=== PATIENT | female | born 1990 | race Caucasian/White ===

== ENCOUNTER 2016-12-18 01:33 | Observation (INO) ==
[2016-12-18] MEDS ORDERED: Ondansetron 4 MG/2 ML VIAL IV ONE (02:44)
[2016-12-18] MEDS ORDERED: 0.9 % Sodium Chloride 1,000 ML IVC ONE (02:44)
--- NOTE | 2016-12-18 03:02 | Emergency Department Note ---
START Narrative - START START: I examined this patient and my medical decision-making was reviewed with the CHIEF TECHNICIAN/PA/Advanced Practice Nurse/Resident Physician. I agree with the documented findings, disposition and treatment plan as described except to the extent set forth below. ED attending note: Patient seen with emergency medicine resident Dr. Marino. Please see a copy of his note for details of the H&P, evaluation, management and disposition of this patient. We independently had [id number] contact with the patient Briefly: A 25-year-old female presents with family for history of dark stools syncopal episode struck head on floor in triage today. Has seen multiple consultants" including mobility developer, neurologist among others. Patient is neurologically nonfocal afebrile with stable vital signs. EKG shows no acute ischemic changes. Lab work and CT scans are pending. Disposition pending.
[2016-12-18 03:40] LABS: Bilirubin,Urine Small (Negative); Blood,Urine Negative (Negative); Clarity,Urine Cloudy (Clear); Color,Urine Dark Yellow (Yellow); Glucose,Urine (UA) Normal (Normal); Ketones,Urine Negative (Negative); Leukocyte Esterase,Urine Negative (Negative); Nitrite,Urine Negative (Negative); PH,Urine 5.5 pH Units (5.0-8.0); Protein,Urine Trace mg/dL (Neg-Trace); Specific Gravity,Urine > 1.030 (1.010-1.025); Urobilinogen,Urine Normal (Normal)
[2016-12-18 03:42] LABS: Bacteria,Urine Few per hpf (None-Few); Hyaline Casts,Urine None Seen per lpf (None-Few); Squamous Epithelial Cell,Urine Many per lpf (None-Few); WBC,Urine 0-3 per hpf (0-3)
[2016-12-18 03:49] LABS: BUN/Creatinine Ratio 41 (6-26); Blood Urea Nitrogen 28 mg/dL (7-20); Calcium 8.9 mg/dL (8.6-10.8); Carbon Dioxide 18 mEq/L (19-29); Chloride 108 mEq/L (98-109); Glucose 118 mg/dL (70-99); Osmolality,Calculated 295 (280-300); Potassium 4.2 mEq/L (3.5-4.5); Sodium 139 mEq/L (136-145); eGFR For African Americans > 60 (> 60); eGFR For Non-African Americans > 60 (> 60)
[2016-12-18 04:20] LABS: Basophils % 0.2 %; Eosinophils # 0.1 K/mcL (0.0-0.6); Eosinophils % 1.2 %; Hematocrit 43.5 % (35.3-44.9); Hemoglobin 14.5 g/dL (11.5-15.4); Immature Granulocytes % 0.2 % (0-4); Lymphocytes # 1.1 K/mcL (0.6-4.6); Lymphocytes % 10.7 %; Mean Corpuscular HGB Conc 33.3 g/dL (31.6-35.5); Mean Corpuscular Hemoglobin 31.3 pg (28.0-33.3); Mean Corpuscular Volume 93.8 fL (83.0-100.0); Monocytes # 0.5 K/mcL (0.0-1.3); Monocytes % 4.6 %; Neutrophils # 8.7 K/mcL (1.6-8.9); Platelet Count 116 K/mcL (140-400); Red Blood Count 4.64 M/mcL (3.82-4.97); Red Cell Distribution Width 12.7 % (11.5-14.5); Segmented Neutrophils % 83.1 %
--- NOTE | 2016-12-18 04:23 | Emergency Department Note ---
Disposition Clinical Impression: Syncope Qualifiers: Syncope type: unspecified Qualified Code(s): R55 - Syncope and collapse GI bleed Qualifiers: GI bleed type/associated pathology: unspecified gastrointestinal hemorrhage type Qualified Code(s): K92.2 - Gastrointestinal hemorrhage, unspecified Disposition: Admitted As Inpatient Condition: Fair Referrals: Rich Ovalles MD [Primary Care Provider] - Forms: ED Satisfaction Letter Time of Disposition: 05:28 Syncope HPI - General Chief Complaint: ED Syncope Stated Complaint: syncope, dark stool, n/v Time Seen by Provider: 12/18/16 01:44 Source: patient, family Limitations: no limitations Nursing Notes Reviewed: Yes Vital Signs Reviewed: Yes - History of Present Illness HPI Narrative: 35-year-old female with 3 episodes of syncope, patient states she has. Home felt lightheaded and passed out unknown duration a few episodes were witnessed one episode in the waiting room was witnessed, episodes home vaulter hitting her head on the sink indicated in the bathroom. Patient states she also rolled her left ankle. Has abrasion on that ankle. Patient denies blood thinners, denies had a period 1 week ago that was normal. Patient states that she has been worked up multiple times by rheumatology for her multiple complaints, headaches shortness of breath, all of her workups for autoimmune disease of been negative so far. Patient is also seen a neurologist Dr. Odessa Mena at [facility] no cause for her symptoms. Pt Subjective Complaint: loss of consciousness Onset (ago): day(s) Prodromal Symptoms: headache, lightheaded Witnessed: yes - by bystander Injuries Sustained Associated with Event: head, RUE, LLE Current Symptoms: none History: none Treatments prior to arrival: none Associated trauma secondary to event: Yes - Related Data Home Medications Medication Instructions Recorded Confirmed Gabapentin [Neurontin] 300 mg PO BID 12/08/16 12/08/16 Metformin [Glucophage] 500 mg PO TID 12/08/16 12/08/16 Previous Rx's Medication Instructions Recorded PredniSONE [Deltasone] 20 mg PO AD #16 tablet 12/08/16 Allergies Allergy/AdvReac Type Severity Reaction Status Date / Time latex Allergy Seizure Verified 12/18/16 01:58 azithromycin AdvReac Nausea Verified 12/18/16 01:58 All systems ED: reviewed and negative except as stated. Constitutional: Denies: fever Cardiovascular: Reports: as per HPI, syncope. Denies: chest pain, palpitations Respiratory: Denies: cough, dyspnea Gastrointestinal: Denies: abdominal pain, nausea, vomiting Musculoskeletal: Denies: back pain, neck pain, arthralgia Neurological: Reports: as per HPI, headache Psychiatric: Denies: anxiety Past Medical History - Past Medical History Attestation: Yes The following information was validated with the patient. 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 HEENT: NCAT, sclera anicteric, PERRLA bilaterally, normal external ears bilaterally, nasal septum nondeviated, average dentition, MMM Neck: normal inspection, neck is supple, trachea midline Resp: normal chest inspection, CTA bilaterally, no resp distress CV: RRR, no m/g/r GI: normal inspection, Soft, NTND, BS present and is nontender Back: normal inspection, no tenderness to palpation Neuro: A&O3, no gross motor or sensory deficits bilaterally MSK: All abrasion with no deformity to the right forearm, small abrasion to the left lateral ankle, no deformity noticed. Psych: normal mood, normal affect Skin: abrasion right forearm and left lateral ankle. - General Limitations: no limitations General appearance: alert Course Course Narrative: Patient borderline tachycardic, 3 episodes of syncope, will check guaiac stool, basic lab work urine urinalysis CT head given fall and left ankle x- ray given injury, do not suspect bony injury to the right arm looks like an abrasion. - Reevaluation(s) Reevaluation #1: Hemoccult was positive for blood, will type and screen, give Protonix for suspected upper GI bleed admitted to medicine service Dr. May accepting. Time: 05:27 Vital Signs Temperature 97.4 F L 12/18/16 01:54 Pulse Rate 99 12/18/16 01:54 Respiratory Rate 16 12/18/16 01:54 Blood Pressure 110/74 12/18/16 01:54 O2 Sat by Pulse Oximetry 99 12/18/16 01:54 Temperature 97.4 F L 12/18/16 01:54 Pulse Rate 99 12/18/16 01:54 Respiratory Rate 16 12/18/16 01:54 Blood Pressure 110/74 12/18/16 01:54 O2 Sat by Pulse Oximetry 99 12/18/16 01:54 Oxygen Delivery Oxygen Delivery Room Air Syncope - Differential Diagnosis Likely: syncope due to orthostatic hypotension, vasovagal syncope, complete atrioventricular block - Medical Records Medical records reviewed: Yes I reviewed the patient's medical records. - Lab Data Lab results reviewed: Yes I reviewed the patient's lab results. Result diagrams: 12/18/16 04:13 12/18/16 03:30 Lab Results 12/18/16 12/18/16 12/18/16 Range/Units 03:30 03:30 03:30 WBC (4.3-11.1) K/mcL RBC (3.82-4.97) M/mcL Hgb (11.5-15.4) g/dL Hct (35.3-44.9) % MCV (83.0-100.0) fL MCH (28.0-33.3) pg MCHC (31.6-35.5) g/dL RDW (11.5-14.5) % Plt Count (140-400) K/mcL MPV (9.4-12.4) fL Immature Gran % (0-4) % Seg Neutrophils % % Lymphocytes % % Monocytes % % Eosinophils % % Basophils % % Neutrophils # (1.6-8.9) K/mcL Lymphocytes # (0.6-4.6) K/mcL Monocytes # (0.0-1.3) K/mcL Eosinophils # (0.0-0.6) K/mcL Basophils # (0.0-0.2) K/mcL Sodium 139 (136-145) mEq/L Potassium 4.2 (3.5-4.5) mEq/L Chloride 108 (98-109) mEq/L Carbon Dioxide 18 L (19-29) mEq/L BUN 28 H (7-20) mg/dL Creatinine 0.68 (0.57-1.11) mg/dL Est GFR ( Amer) > 60 (> 60) Est GFR (Non-Af Amer) > 60 (> 60) BUN/Creatinine Ratio 41 H (6-26) Glucose 118 H (70-99) mg/dL Calculated Osmolality 295 (280-300) Calcium 8.9 (8.6-10.8) mg/dL Troponin I 0.00 (0-0.03) ng/mL Urine Color Dark Yellow (Yellow) Urine Clarity Cloudy A (Clear) Urine pH 5.5 (5.0-8.0) pH Units Ur Specific [place] > 1.030 H (1.010-1.025) Urine Protein Trace (Neg-Trace) mg/dL Urine Glucose (UA) Normal (Normal) mg/dL Urine Ketones Negative (Negative) mg/dL Urine Blood Negative (Negative) Urine Nitrite Negative (Negative) Urine Bilirubin Small H (Negative) Urine Urobilinogen Normal (Normal) mg/dL Ur Leukocyte Esterase Negative (Negative) Urine Microscopic RBC 5-15 H (0-3) per hpf Urine Microscopic WBC 0-3 (0-3) per hpf Ur Squamous Epith Cells Many H (None-Few) per lpf Urine Bacteria Few (None-Few) per hpf Hyaline Casts None Seen (None-Few) per lpf Urine Test (Negative) Stool Occult Blood (Negative) Specimen Rejected 12/18/16 12/18/16 12/18/16 Range/Units 03:30 03:39 04:13 WBC 10.4 (4.3-11.1) K/mcL RBC 4.64 (3.82-4.97) M/mcL Hgb 14.5 (11.5-15.4) g/dL Hct 43.5 (35.3-44.9) % MCV 93.8 (83.0-100.0) fL MCH 31.3 (28.0-33.3) pg MCHC 33.3 (31.6-35.5) g/dL RDW 12.7 (11.5-14.5) % Plt Count 116 L (140-400) K/mcL MPV 12.0 (9.4-12.4) fL Immature Gran % 0.2 (0-4) % Seg Neutrophils % 83.1 % Lymphocytes % 10.7 % Monocytes % 4.6 % Eosinophils % 1.2 % Basophils % 0.2 % Neutrophils # 8.7 (1.6-8.9) K/mcL Lymphocytes # 1.1 (0.6-4.6) K/mcL Monocytes # 0.5 (0.0-1.3) K/mcL Eosinophils # 0.1 (0.0-0.6) K/mcL Basophils # 0.0 (0.0-0.2) K/mcL Sodium (136-145) mEq/L Potassium (3.5-4.5) mEq/L Chloride (98-109) mEq/L Carbon Dioxide (19-29) mEq/L BUN (7-20) mg/dL Creatinine (0.57-1.11) mg/dL Est GFR ( Amer) (> 60) Est GFR (Non-Af Amer) (> 60) BUN/Creatinine Ratio (6-26) Glucose (70-99) mg/dL Calculated Osmolality (280-300) Calcium (8.6-10.8) mg/dL Troponin I (0-0.03) ng/mL Urine Color (Yellow) Urine Clarity (Clear) Urine pH (5.0-8.0) pH Units Ur Specific [place] (1.010-1.025) Urine Protein (Neg-Trace) mg/dL Urine Glucose (UA) (Normal) mg/dL Urine Ketones (Negative) mg/dL Urine Blood (Negative) Urine Nitrite (Negative) Urine Bilirubin (Negative) Urine Urobilinogen (Normal) mg/dL Ur Leukocyte Esterase (Negative) Urine Microscopic RBC (0-3) per hpf Urine Microscopic WBC (0-3) per hpf Ur Squamous Epith Cells (None-Few) per lpf Urine Bacteria (None-Few) per hpf Hyaline Casts (None-Few) per lpf Urine Test Negative (Negative) Stool Occult Blood (Negative) Specimen Rejected Clotted 12/18/16 Range/Units 04:25 WBC (4.3-11.1) K/mcL RBC (3.82-4.97) M/mcL Hgb (11.5-15.4) g/dL Hct (35.3-44.9) % MCV (83.0-100.0) fL MCH (28.0-33.3) pg MCHC (31.6-35.5) g/dL RDW (11.5-14.5) % Plt Count (140-400) K/mcL MPV (9.4-12.4) fL Immature Gran % (0-4) % Seg Neutrophils % % Lymphocytes % % Monocytes % % Eosinophils % % Basophils % % Neutrophils # (1.6-8.9) K/mcL Lymphocytes # (0.6-4.6) K/mcL Monocytes # (0.0-1.3) K/mcL Eosinophils # (0.0-0.6) K/mcL Basophils # (0.0-0.2) K/mcL Sodium (136-145) mEq/L Potassium (3.5-4.5) mEq/L Chloride (98-109) mEq/L Carbon Dioxide (19-29) mEq/L BUN (7-20) mg/dL Creatinine (0.57-1.11) mg/dL Est GFR ( Amer) (> 60) Est GFR (Non-Af Amer) (> 60) BUN/Creatinine Ratio (6-26) Glucose (70-99) mg/dL Calculated Osmolality (280-300) Calcium (8.6-10.8) mg/dL Troponin I (0-0.03) ng/mL Urine Color (Yellow) Urine Clarity (Clear) Urine pH (5.0-8.0) pH Units Ur Specific [place] (1.010-1.025) Urine Protein (Neg-Trace) mg/dL Urine Glucose (UA) (Normal) mg/dL Urine Ketones (Negative) mg/dL Urine Blood (Negative) Urine Nitrite (Negative) Urine Bilirubin (Negative) Urine Urobilinogen (Normal) mg/dL Ur Leukocyte Esterase (Negative) Urine Microscopic RBC (0-3) per hpf Urine Microscopic WBC (0-3) per hpf Ur Squamous Epith Cells (None-Few) per lpf Urine Bacteria (None-Few) per hpf Hyaline Casts (None-Few) per lpf Urine Test (Negative) Stool Occult Blood Positive A (Negative) Specimen Rejected - Radiology Data Radiology results reviewed: Yes I reviewed the patient's radiology results. Ankle X-Ray 12/18/16 02:43 IMPRESSION: No acute abnormality of the ankle. D/ / Jimmy Avila MD / Jimmy Avila MD Interpreting Provider: Jimmy Avila MD Head CT 12/18/16 02:43 IMPRESSION: 1. No acute intracranial abnormality. D/ / Nikko Centeno MD / Nikko Centeno MD Interpreting Provider: Nikko Centeno MD Chest X-Ray 12/18/16 02:44 IMPRESSION: No acute process. D/ / Jimmy Avila MD / Jimmy Avila MD Interpreting Provider: Jimmy Avila MD - EKG Data EKG attestation: Yes I reviewed and interpreted this EKG. EKG shows normal: sinus rhythm (72 bpm. 151 QRS 76 QTC 397 left atrial enlargement, no st changes) Rhythm: NSR [place]/QRS: normal Interpretation: no acute changes - Core Measures AMI Core Measures Followed: No Measure Exclusions: not indicated
[2016-12-18] MEDS ORDERED: Pantoprazole 40 MG VIAL IVP ONE (05:18)
[2016-12-18] MEDS ORDERED: 0.9 % Sodium Chloride 1,000 ML IVC SCH (05:30)
[2016-12-18] MEDS ORDERED: Acetaminophen 325 MG TABLET PO PRN (07:25)
[2016-12-18] MEDS ORDERED: Naloxone 0.4 MG/ML INJ IVP PRN (07:25)
[2016-12-18 08:42] LABS: Amphetamine Screen,Urine Negative ng/mL (Cutoff=1000); Barbiturate Screen,Urine Negative ng/mL (Cutoff=200); Benzodiazepines Screen,Urine Negative ng/mL (Cutoff=200); Cannabinoid Screen,Urine Negative ng/mL (Cutoff = 50); Cocaine Screen,Urine Negative ng/mL (Cutoff= 300); Opiate Screen,Urine Negative ng/mL (Cutoff=300); Phencyclidine Screen,Urine Negative ng/mL (Cutoff=25)
--- NOTE | 2016-12-18 12:17 | Internal Med History&Physical ---
Date of Encounter: 12/18/16 Time of Encounter: 11:21 Assessment and Plan (1) Nausea vomiting and diarrhea Current visit: Yes Status: Acute Now, she comes with a 3 day history of sudden onset of severe neck tenderness associated with palpitations. She describes her pain as burning-type, localized to her anterior neck, then radiated to her posterior area and continued all the way to her lower back. Yesterday, she developed nausea, vomiting and diarrhea. No bleeding. She vomited more than 10 times and had 3-4 watery bowel movements followed by dizziness and multiple syncopal episodes. No chest pain. no shortness of breath. no abdominal pain. no fever. no urinary symptoms. no skin lesions. no sick contacts. no upper respiratory symptoms. She ate [employer] yesterday which she does from time to time without any problems. Today, she had one watery bowel movement and no vomit since she received IV Zofran. Her neck tenderness is improving as well as her lower back pain. No syncopal episodes while inpatient. VS stable in ED. EKG reviewed by me, no new acute changes. CXR negative. troponin x1 negative. unremarkable cbc, bmp and urinarlysis. negative UDS. could be viral gastroenteritis. Symptoms are resolving and patient feels better. Continue IV fluid hydration and pain control with opiates. (2) Syncope Current visit: Yes Status: Acute likely secondary to dehydration. could be cardiac vs vasovagal. EKG on admission showed no new changes. negative CXR and troponin x1. Ct head showed no acute intracranial process. unremarkable cbc, bmp and urinarlysis. negative UDS. IV fluids. check echocardiogram. ekg monitor tech. Qualifiers: Syncope type: unspecified Qualified Code(s): R55 - Syncope and collapse (3) Dehydration Current visit: Yes Status: Acute (4) Tenderness of neck Current visit: Yes Status: Acute Improved. could be secondary to viral infection. (5) Thrombocytopenia Current visit: No Status: Chronic Platelets are at baseline. no bleeding. completed recent taper of prednisone on 12/15/16. close monitoring Internal Medicine - H&P: HPI Chief complaint: vomiting, diarrhea and syncope sicne yesterday Admitted From: Home Plans for Post Hospital Care: Home History of present illness: Ms. Patel is a 25 year old female with past medical history of chronic thrmbocytopenia, polycystic ovarian disease, fibromyalgia and tobacco use who has been dealing with an unknown illness for the past year. She reports that she has seen almost all the specialties in [place] without any answer for her symptoms. She is very vague about her symptoms, she reports extreme fatigue, headaches, arthritis, and pain all over.Her outpatient work up between February 2016 and October [address] has included [address] chest, HIV, viral hepatitis, PRATIMA, HLA-B27, RF, CCP, TSH, b12, folate, and RPR. CT abd and pelvis in Jun showed 8 mm splenic cyst or hemangioma, Unremarkable liver and spleen. She was started on prednisone on 12/08/16 for chronic thrombocytopenia since 2013 ( platelets fluctuates in the 90-100s). A week ago, she took bactrim for 7 days to treat a UTI and all her urinary symptoms resolved. Now, she comes with a 3 day history of sudden onset of severe neck tenderness associated with palpitations. She describes her pain as burning-type, localized to her anterior neck, then radiated to her posterior area and continued all the way to her lower back. Yesterday, she developed nausea, vomiting and diarrhea. No bleeding. She vomited more than 10 times and had 3-4 watery bowel movements followed by dizziness and multiple syncopal episodes. No chest pain. no shortness of breath. no abdominal pain. no fever. no urinary symptoms. no skin lesions. no sick contacts. no upper respiratory symptoms. She ate [employer] yesterday which she does from time to time without any problems. Today, she had one watery bowel movement and no vomit since she received IV Zofran. Her neck tenderness is improving as well as her lower back pain. No syncopal episodes while inpatient. VS stable in ED. EKG reviewed by me, no new acute changes. CXR negative. troponin x1 negative. Ct head showed no acute intracranial process. unremarkable cbc, bmp and urinarlysis. negative UDS. Past Med Surg Social Fam HX - Past Medical History Medical history: GERD, other Psychiatric history: no psych history - Past Surgical History Surgical History: , cholecystectomy - Social History Smoking Status: Current every day smoker Packs per day: 1 Smokeless Tobacco Status: No Alcohol use: none Drug use: none - Family History Father Hx Family Endocrine Disorder: Yes (DIABETES MELLITUS.) Internal Medicine - H&P: Meds Gabapentin [Neurontin] 300 mg PO BID 12/08/16 [History] Metformin [Glucophage] 500 mg PO TID 12/08/16 [History] PredniSONE [Deltasone] 20 mg PO AD #16 tablet 12/08/16 [Rx] Allergies latex Allergy (Verified 12/18/16 01:58) Seizure azithromycin Adverse Reaction (Verified 12/18/16 01:58) Nausea All Systems PM: A 10-system review of systems was performed and is negative for pertinent findings except as documented above in the HPI. - Constitutional Vitals: Temp Pulse Resp BP Pulse Ox 98.2 F 87 16 99/65 96 12/18/16 10:18 12/18/16 10:18 12/18/16 10:18 12/18/16 10:18 12/18/16 10:18 General appearance: Present: cooperative, A&O X 3, morbidly obese, pleasant, no acute distress, answers questions appropriately - Eye Eye exam: Present: PERRL, sclera anicteric - Neck Neck exam general surgery: Present: supple, trachea midline. Absent: lymphadenopathy - Respiratory Respiratory exam: Present: CTAB - Cardiovascular Cardiovascular exam: Present: RRR - GI/Abdominal GI/Abdominal exam: Present: normal bowel sounds, soft. Absent: distended, tenderness - Extremities Exam Extremities exam: Absent: pedal edema - Back Exam Back exam: Absent: CVA tenderness (L), CVA tenderness (R) - Neurological Exam Neurological exam: Present: alert, oriented X3, no focal deficits, strengths equal and symetr throughout. Absent: facial droop, speech deficit - Skin Skin exam: Absent: rash Internal Med - H&P Results - Labs CBC & Chem 7: 12/18/16 04:13 12/18/16 03:30
[2016-12-18] MEDS: 0.9 % Sodium Chloride 1,000 ML IVC SCH ×2 (12:29→17:08)
[2016-12-18] MEDS: Gabapentin 300 MG CAPSULE PO SCH (19:56)
[2016-12-19] MEDS: 0.9 % Sodium Chloride 1,000 ML IVC SCH (03:44)
[2016-12-19 04:45] LABS: Immature Granulocytes % 0.2 % (0-4); Mean Platelet Volume 12.8 fL (9.4-12.4)
[2016-12-19 04:46] LABS: Basophils % 0.4 %; Eosinophils # 0.1 K/mcL (0.0-0.6); Eosinophils % 2.6 %; Hematocrit 34.3 % (35.3-44.9); Hemoglobin 11.4 g/dL (11.5-15.4); Immature Platelets 11.1 % (1.1-6.1); Lymphocytes # 1.8 K/mcL (0.6-4.6); Lymphocytes % 37.4 %; Mean Corpuscular HGB Conc 33.2 g/dL (31.6-35.5); Mean Corpuscular Hemoglobin 31.8 pg (28.0-33.3); Mean Corpuscular Volume 95.5 fL (83.0-100.0); Monocytes # 0.3 K/mcL (0.0-1.3); Monocytes % 6.8 %; Neutrophils # 2.5 K/mcL (1.6-8.9); Red Blood Count 3.59 M/mcL (3.82-4.97); Red Cell Distribution Width 12.8 % (11.5-14.5); Segmented Neutrophils % 52.6 %
[2016-12-19 04:51] LABS: BUN/Creatinine Ratio 21 (6-26); Calcium 7.9 mg/dL (8.6-10.8); Carbon Dioxide 23 mEq/L (19-29); Chloride 110 mEq/L (98-109); Glucose 90 mg/dL (70-99); Magnesium 1.8 mg/dL (1.6-2.6); Osmolality,Calculated 288 (280-300); Potassium 3.7 mEq/L (3.5-4.5); Sodium 139 mEq/L (136-145); eGFR For African Americans > 60 (> 60); eGFR For Non-African Americans > 60 (> 60)
[2016-12-19 04:52] LABS: Blood Urea Nitrogen 13 mg/dL (7-20)
[2016-12-19 05:14] LABS: Platelet Count 94 K/mcL (140-400); Platelet Estimate Decreased (Normal)
--- NOTE | 2016-12-19 06:59 | Electrocardiograph Report ---
[address] [place] [address] Test Date: 2016-12-18 Pat Name: Lizbeth Patel Department: 102 Room: 3B24 Gender: F Manganese Wheeler: Ec : 1990 Requested By: Bj Remy Order Number: [id number] Reading MD: Buddy Tirado MD Measurements Intervals [place] Rate: 72 P: 14 TX: 151 QRS: 69 QRSD: 76 T: 45 QT: 373 QTc: 397 Interpretive Statements SINUS RHYTHM WITH SINUS ARRHYTHMIA LEFT ATRIAL ENLARGEMENT SEPTAL MYOCARDIAL INFARCTION, OF INDETERMINATE AGE Electronically Signed On 12-19-2016 6:58:24 EDT by Buddy Tirado MD
[2016-12-19] MEDS: Gabapentin 300 MG CAPSULE PO SCH ×2 (08:43→20:50)
[2016-12-19 09:13] LABS: Hematocrit 35.8 % (35.3-44.9); Hemoglobin 11.6 g/dL (11.5-15.4)
[2016-12-19 09:18] LABS: INR 1.2
[2016-12-19 09:20] LABS: Activated Partial Thrombo Time 30.3 Seconds (26.0-36.0)
--- NOTE | 2016-12-19 18:23 | ECHO - Doppler Report ---
Echocardiogram Name: Lizbeth Patel Date of Study: 12/19/2016 Date: 1990 Ht: 63.0 in Medical Record#: [id number] Age: 25 Wt: 207.0 lb Gender: Female BSA: 1.96 Order #: [id number] Location: [facility] Room #: 3B24 Reading Physician: Buddy Tirado MD, [facility] Client Insights Consultant: Eleanor Cortés RDCS Ordering Physician: Abigail Story MD Primary Physician: Rich Ovalles MD Indications: Syncope Impressions: Severe mitral stenosis. Likely severe tricuspid stenosis. Moderate mitral regurgitation. Rheumatic mitral valve. Likely thickened chordae, but vegetation cannot be ruled out At least moderately dilated right atrium Severely dilated left atrium. Severe pulmonary hypertension. Mild aortic stenosis. Moderate aortic regurgitation. The IVC is dilated. < 50% respiratory change. LVEF 60-65%. Left Ventricular Wall Motion: Rest Echo Findings All wall segments showed normal motion. Findings: Study Quality * Technically adequate exam. Right Ventricle * Normal right ventricular structure and function. Right Atrium * At least moderately dilated right atrium Interatrial Septum * No evidence of PFO by color Doppler. Aorta * Normally sized aortic root. ECG Findings * Normal sinus rhythm. Mitral Valve * Mildly thickened mitral valve leaflets. * Severe mitral stenosis. * Moderate mitral regurgitation. * Rheumatic mitral valve. Likely thickened chordae, but vegetation cannot be ruled out Left Atrium * Severely dilated left atrium. Tricuspid Valve * Estimated RVSP is 60 mmHg. * Severe pulmonary hypertension. * Likely severe tricuspid stenosis. * Estimated RA pressure is 10-15 mmHg. Pulmonic Valve * No pulmonid stenosis * Trace pulmonic regurgitation. Pericardium * There is a trivial pericardial effusion present. Aortic Valve * Normal aortic valve structure. * Mild aortic stenosis. * Peak and mean gradients are 30 14 mmHg, respectively. * Moderate aortic regurgitation. IVC * The IVC is dilated. * < 50% respiratory change. Left Ventricle * LVEF 60-65%. * Indeterminate diastolic function. History History of Smoking Years Packs 1 Measurements: BP: 116/ 74 2D Normal Values RVIDd: 2.87 cm <2.7 cm IVSd: .91 cm 0.6 - 1.0 cm LVIDd: 3.69 cm 3.7 - 5.6 cm LVPWd: 1.17 cm 0.6 - 1.1 cm LVIDs: 2.13 cm 1.5 - 3.6 cm AO: 1.70 cm < 4.0 cm LA: 5.00 cm 2.0 - 4.0cm %FS: 42.30 cm >25 % LVOT Diam: 1.90 cm LA volume: 56 Mitral Valve Peak Velocity 3.53 m/sec Mean Velocity:2.37 m/sec Peak Grad:50.00 mmHg Mean Grad:25.00 mmHg Peak E:2.67 m/sec Peak A:3.02 m/sec E/A Ratio:0.9 Aortic Valve Peak Telly:2.63 m/sec Mean Telly:1.73 m/sec Peak Grad:28.00 mmHg Mean Grad:14.00 mmHg AI pressure Half-time: 471.00 msec Tricuspid Valve TV Regurg Peak Grad: 60.00mmHg TV Regurg Peak Telly: 3.87m/sec Updated by Buddy Tirado MD, [facility] on 12/19/2016 6:19:28 PM electronically signed on 12/19/2016 6:19:48 PM with status of Final Wall Motion [place]: 1=Normal, 2=Hypokinesis, 3=Akinesis, 4=Dyskinesis, 5=Aneurysmal, 6=Hyperkinetic, X=Not Visualized (Blank)=Missing
--- NOTE | 2016-12-19 19:23 | Internal Med Progress Note ---
Date of Encounter: 12/19/16 Time of Encounter: 09:30 - Assessment and plan (1) Syncope Current Visit: Yes Status: Acute Assessment and plan: echocardiogram reveals rheumatic mitral valve, severe mitral stenosis, mod MR, sev dialted LA, severe pulm HTN, mod AR, LVEF 60%. Cardiology consult. 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 VS stable. CXR negative. troponin x1 negative. Qualifiers: Syncope type: unspecified Qualified Code(s): R55 - Syncope and collapse (2) Nausea vomiting and diarrhea Current Visit: Yes Status: Acute Assessment and plan: 3 day history of sudden onset of severe neck tenderness associated with palpitations. She describes her pain as burning-type, localized to her anterior neck, then radiated to her posterior area and continued all the way to her lower back. Yesterday, she developed nausea, vomiting and diarrhea. No bleeding. She vomited more than 10 times and had 3-4 watery bowel movements followed by dizziness and multiple syncopal episodes. No chest pain. no shortness of breath. no abdominal pain. no fever. no urinary symptoms. no skin lesions. no sick contacts. no upper respiratory symptoms. She ate [employer] yesterday which she does from time to time without any problems. Today, she had one watery bowel movement and no vomit since she received IV Zofran. Her neck tenderness is improving as well as her lower back pain. No syncopal episodes while inpatient. Improved. No vomiting. eating well. could be viral gastroenteritis. (3) Dehydration Current Visit: Yes Status: Acute Assessment and plan: due to N/V/diarrhea. resolved. (4) Tenderness of neck Current Visit: Yes Status: Resolved (5) Thrombocytopenia Current Visit: No Status: Chronic Assessment and plan: Platelets are at baseline. no bleeding. completed recent taper of prednisone on 12/15/16. close monitoring - Subjective Interval history: Patient reports leg and arm swelling after IV fluid hydration. IVF stopped. - Constitutional Vitals: Temp Pulse Resp BP Pulse Ox 97.5 F L 68 16 116/74 97 12/19/16 15:02 12/19/16 15:02 12/19/16 15:02 12/19/16 15:02 12/19/16 15:02 General appearance: Present: cooperative, A&O X 3, morbidly obese, pleasant, no acute distress, answers questions appropriately - Neck Neck exam general surgery: Present: supple, trachea midline - Respiratory Respiratory exam: Present: CTAB - Cardiovascular Cardiovascular exam: Present: RRR - GI/Abdominal GI/Abdominal exam: Present: normal bowel sounds, soft. Absent: distended, tenderness - Extremities Exam Extremities exam: Present: pedal edema - Back Exam Back exam: Absent: CVA tenderness (L), CVA tenderness (R) - Neurological Exam Neurological exam: Present: alert, oriented X3, no focal deficits, strengths equal and symetr throughout. Absent: facial droop, speech deficit - Skin Skin exam: Absent: rash Internal Medicine: Result - Labs CBC & Chem 7: 12/19/16 08:27 12/19/16 04:00 Labs: Short CBC 12/19/16 12/19/16 Range/Units 04:00 08:27 WBC 4.7 D (4.3-11.1) K/mcL Hgb 11.4 L D 11.6 (11.5-15.4) g/dL Hct 34.3 L 35.8 (35.3-44.9) % Plt Count 94 L (140-400) K/mcL Neutrophils # 2.5 (1.6-8.9) K/mcL BMP 12/19/16 04:00 Sodium 139 Potassium 3.7 Chloride 110 H Carbon Dioxide 23 BUN 13 D Creatinine 0.63 Glucose 90 Calcium 7.9 L - ABG Interpretation ABG results: PT/INR, D-dimer PT 13.0 Seconds (9.4-12.1) H 12/19/16 08:27 Consult Discharge Plan - Plan Referrals: Rich Ovalles MD [Primary Care Provider] - 12/27/16 2:00 pm
[2016-12-20 04:52] LABS: Immature Granulocytes % 0.2 % (0-4); Mean Corpuscular Volume 95.1 fL (83.0-100.0)
[2016-12-20 04:54] LABS: Basophils % 0.3 %; Eosinophils # 0.1 K/mcL (0.0-0.6); Eosinophils % 2.1 %; Hematocrit 34.8 % (35.3-44.9); Hemoglobin 11.3 g/dL (11.5-15.4); Immature Platelets 13.6 % (1.1-6.1); Lymphocytes # 1.9 K/mcL (0.6-4.6); Lymphocytes % 30.6 %; Mean Corpuscular HGB Conc 32.5 g/dL (31.6-35.5); Mean Corpuscular Hemoglobin 30.9 pg (28.0-33.3); Mean Platelet Volume 12.7 fL (9.4-12.4); Monocytes # 0.4 K/mcL (0.0-1.3); Monocytes % 6.9 %; Neutrophils # 3.7 K/mcL (1.6-8.9); Red Blood Count 3.66 M/mcL (3.82-4.97); Red Cell Distribution Width 12.7 % (11.5-14.5); Segmented Neutrophils % 59.9 %
[2016-12-20 04:56] LABS: Platelet Count 90 K/mcL (140-400)
[2016-12-20 05:16] LABS: Alanine Aminotransferase 21 Units/L (0-55); Albumin 3.1 g/dL (3.5-5.0); Albumin/Globulin Ratio 1.1 (1.1-2.2); Alkaline Phosphatase 33 Units/L (38-126); Aspartate Amino Transferase 13 Units/L (5-34); BUN/Creatinine Ratio 22 (6-26); Bilirubin,Direct 0.1 mg/dL (0.0-0.5); Bilirubin,Indirect 0.3 mg/dL (0.0-1.2); Bilirubin,Total 0.4 mg/dL (0.2-1.2); Blood Urea Nitrogen 14 mg/dL (7-20); C-Reactive Protein 6 mg/L (Less than 5); Calcium 8.4 mg/dL (8.6-10.8); Carbon Dioxide 23 mEq/L (19-29); Chloride 109 mEq/L (98-109); Globulin 2.8 g/dL (2.4-3.5); Glucose 89 mg/dL (70-99); Osmolality,Calculated 286 (280-300); Sodium 138 mEq/L (136-145); Total Protein 5.9 g/dL (6.0-8.3); eGFR For African Americans > 60 (> 60); eGFR For Non-African Americans > 60 (> 60)
[2016-12-20] MEDS: Gabapentin 300 MG CAPSULE PO SCH ×2 (09:17→20:43)
--- NOTE | 2016-12-20 10:47 | Cardiology Consult Note ---
<RogerFannie barbour - Last Filed: 12/20/16 10:47> Date of Encounter: 12/20/16 Time of Encounter: 09:30 Assessment and Plan (1) Mitral valve stenosis, severe Current Visit: Yes Status: Acute Echocardiogram from yesterday showed severe mitral stenosis, likelly severe TC stenosis, moderate mitral regurg, rheumatic mitral valve, likely thickened chordae, but vegetation cannot be ruled out. Severely dilated LA, moderately dilated RA, severe pulmonary HTN, moderate aortic regurg. LVEF 60-65%. patient was admitted with multiple syncopal episodes that started on Monday. These episodes were preceded by nausea and vomiting, also associated with bowel/ bladder incontinence. no prior cardiac history, EKG shows no significant findings/changes. Plan: in setting of severe mitral stenosis, patient will need to be evaluated for valve repair surgery, will likely need to be transferred to [facility] [place]. will discuss with patient plan for surgery and possible transfer. (2) Syncope Current Visit: Yes Status: Acute likely multifactorial in setting of dehydration, mitral stenosis. no syncopal episodes since admission. Plan as above. Qualifiers: Syncope type: unspecified Qualified Code(s): R55 - Syncope and collapse Discussion w patient/family: The assessment and plan as outlined above was discussed with the patient and/or family members who expressed understanding and agreement. All questions were answered. Thank you for involving us in the care of your patient. Please call with any questions. History of Present Illness Consult date: 12/20/16 Requesting physician: Abigail Story Consult reason: severe mitral stenosis Chief complaint: syncope History of present illness: Ms. Patel is a 26 year old female with PMHx of GERD chronic throbocytopenia ( sees Dr. Solis, is being referred to [facility] for workup), PCOS. Patient was admitted for syncopal episodes that started on Monday. Patient states she had about 4-5 syncopal episodes. These episodes were associated with nausea and vomiting preceding the epsisodes. She also states she had loss of bowel and bladder function during this time as well. SHe had one episode of witnessed syncope in the emergency room. She states that when these episodes happen, it is not associated with any specific activity. She has not noticed syncopal episodes with exercise. When these episodes of syncope started, she also complained of diarrhea, which has resolved since her hospital admission. Today, she denies nausea, vomiting, diarrhea, fever, chills, shortness of breath , and dizziness. Echo showed severe mitral stenosis, which was the reason for the cardiology consult. Patient states that her syncope episodes first started when she was 7/8 years old. She says they would occur frequently every time she had strep throat, and then resolved after she had her tonsils taken out around age 9. Of note, patient has been having vague symptoms for about the past year. Her symptoms include extreme fatigue, chronic joint pain, headache. She had a multitude of diagnostic tests that were done and were negative, including: HIV, viral hepatitis, PRATIMA, HLA B27, RF, CCP, TSH, B12, Folate, RPR. Past Med Surg Social Fam HX - Past Medical History Medical history: GERD, other Psychiatric history: no psych history - Past Surgical History Surgical History: , cholecystectomy - Social History Smoking Status: Current every day smoker Packs per day: 1 Smokeless Tobacco Status: No Alcohol use: none Drug use: none - Family History Father Hx Family Endocrine Disorder: Yes (DIABETES MELLITUS.) Medications and Allergies Gabapentin [Neurontin] 300 mg PO BID PRN 12/08/16 [History] Metformin [Glucophage] 500 mg PO TID 12/08/16 [History] PredniSONE [Deltasone] See Taper PO AD 12/18/16 [History] Allergies latex Allergy (Verified 12/18/16 01:58) Seizure azithromycin Adverse Reaction (Verified 12/18/16 01:58) Nausea All Systems Review: A 10-system review of systems was performed and is negative for pertinent findings except as documented above in the HPI. - Constitutional Constitutional: fatigue, headache(s), lethargy, weight gain, no chills, no daytime sleepiness, no fever(s), no frequent falls - Cardiovascular Cardiovascular: palpitations (occasionally with exercise), no chest pain at rest , no chest pain with exertion, no leg edema - Gastrointestinal Gastrointestinal: diarrhea (resolved since admission. ), no abdominal pain, no coffee ground emesis - Neurological Neurological: syncope, no abnormal speech, no dizziness Physical Examination Vital Signs, Last 4 Hours Temp Pulse Resp BP Pulse Ox 12/20/16 07:23 98.0 F 65 15 103/65 98 General: Conversant, No Apparent Distress HEENT: Atraumatic, Normocephaly Neck: No JVD Cardiac: Reg Rate and Rhythm, Normal S1 and S2, Other (very mild grade 1 diastolic murmur noted. ) Lungs: Normal Breath Sounds, No Wheeze, Rales, Rhonchi Neuro: Alert and responsive, No focal deficits noted Abdomen: Soft, Non-Tender Extremities: No Clubbing, No Cyanosis, No Edema Results 12/20/16 04:02 12/20/16 04:02 Lab Results 12/20/16 12/20/16 04:02 04:02 WBC 6.2 Hgb 11.3 L Hct 34.8 L Plt Count 90 L Sodium 138 Potassium 4.0 Chloride 109 Carbon Dioxide 23 BUN 14 Creatinine 0.64 Glucose 89 Calcium 8.4 L Total Bilirubin 0.4 AST 13 ALT 21 Alkaline Phosphatase 33 L Consult Discharge Plan - Plan Referrals: Rich Ovalles MD [Primary Care Provider] - 12/27/16 2:00 pm <Idania Renner - Last Filed: 12/20/16 17:02> Assessment and Plan Discussion w patient/family: The assessment and plan as outlined above was discussed with the patient and/or family members who expressed understanding and agreement. All questions were answered. Thank you for involving us in the care of your patient. Please call with any questions. History of Present Illness History of present illness: Ms. Patel is a 26 year old female All Systems Review: A 10-system review of systems was performed and is negative for pertinent findings except as documented above in the HPI. Physical Examination Vital Signs, Last 4 Hours Temp Pulse Resp BP Pulse Ox 12/20/16 15:21 98.0 F 58 16 114/78 98 Results 12/20/16 04:02 12/20/16 04:02 Lab Results 12/20/16 12/20/16 04:02 04:02 WBC 6.2 Hgb 11.3 L Hct 34.8 L Plt Count 90 L Sodium 138 Potassium 4.0 Chloride 109 Carbon Dioxide 23 BUN 14 Creatinine 0.64 Glucose 89 Calcium 8.4 L Total Bilirubin 0.4 AST 13 ALT 21 Alkaline Phosphatase 33 L - Attending Attestation I examined this patient and my medical decision-making was reviewed with the LABORATORY INSPECTOR/PA/Advanced Practice Nurse/Resident Physician. I agree with the documented findings, disposition and treatment plan. Very pleasant 26 year old female presenting with a year long history of nonspecific symptoms of extreme fatigue and joint pain. She presented to [facility] for syncopal symptoms and had an echo as part of her work up. This demonstrated normal LV and RV function but a rheumatic appearing mitral valve with severe stenosis, MG 20 mmHg and findings of chronicity including severe LAE and severe pulmonary hypertension. Also seen is restricted tricuspid valve leaflet motion which was suboptimally visualized. In addition, she has a thickened tricuspid aortic valve with probable moderate aortic regurgitation. I had a long discussion with the patient about these findings. While she does not appear to be in heart failure, I am concerned about her syncopal episodes and her ongoing nonspecific symptoms. I have recommended transfer to a tertiary care center for further workup of her valvular disease. She will likely need a NOE and mitral valve replacement. She expressed understanding and interest in transfer to [facility]. I spoke with their transfer center who has accepted the patient.
--- NOTE | 2016-12-20 13:59 | Internal Med Progress Note ---
Date of Encounter: 12/20/16 Time of Encounter: 10:15 - Assessment and plan (1) Syncope Current Visit: Yes Status: Acute Assessment and plan: echocardiogram reveals rheumatic mitral valve, severe mitral stenosis, mod MR, sev dialted LA, severe pulm HTN, mod AR, LVEF 60%. 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 CXR negative. troponin x1 negative. Qualifiers: Syncope type: unspecified Qualified Code(s): R55 - Syncope and collapse (2) Mitral valve stenosis, severe Current Visit: Yes Status: Acute Assessment and plan: echocardiogram reveals rheumatic mitral valve, severe mitral stenosis, mod MR, sev dialted LA, severe pulm HTN, mod AR, LVEF 60%. Cardiology consult. (3) Nausea vomiting and diarrhea Current Visit: Yes Status: Acute Assessment and plan: 3 day history of sudden onset of severe neck tenderness associated with palpitations. She describes her pain as burning-type, localized to her anterior neck, then radiated to her posterior area and continued all the way to her lower back. Yesterday, she developed nausea, vomiting and diarrhea. No bleeding. She vomited more than 10 times and had 3-4 watery bowel movements followed by dizziness and multiple syncopal episodes. No chest pain. no shortness of breath. no abdominal pain. no fever. no urinary symptoms. no skin lesions. no sick contacts. no upper respiratory symptoms. She ate [employer] yesterday which she does from time to time without any problems. Today, she had one watery bowel movement and no vomit since she received IV Zofran. Her neck tenderness is improving as well as her lower back pain. No syncopal episodes while inpatient. resolved. No vomiting. eating well. could be viral gastroenteritis. (4) Dehydration Current Visit: Yes Status: Acute Assessment and plan: due to N/V/diarrhea. resolved. (5) Tenderness of neck Current Visit: Yes Status: Resolved (6) Thrombocytopenia Current Visit: No Status: Chronic Assessment and plan: Platelets are at baseline. no bleeding. completed recent taper of prednisone on 12/15/16. close monitoring - Subjective Interval history: No chest pain. No dizziness. - Constitutional Vitals: Temp Pulse Resp BP Pulse Ox 97.7 F 75 14 123/77 96 12/20/16 11:31 12/20/16 11:31 12/20/16 11:31 12/20/16 11:31 12/20/16 11:31 General appearance: Present: cooperative, A&O X 3, morbidly obese, pleasant, no acute distress, answers questions appropriately - Respiratory Respiratory exam: Present: CTAB - Cardiovascular Cardiovascular exam: Present: RRR - GI/Abdominal GI/Abdominal exam: Present: normal bowel sounds, soft. Absent: distended, tenderness - Extremities Exam Extremities exam: Absent: pedal edema - Back Exam Back exam: Absent: CVA tenderness (L), CVA tenderness (R) - Neurological Exam Neurological exam: Present: alert, oriented X3, no focal deficits, strengths equal and symetr throughout. Absent: facial droop, speech deficit - Skin Skin exam: Absent: rash Internal Medicine: Result - Labs CBC & Chem 7: 12/20/16 04:02 12/20/16 04:02 Labs: Short CBC 12/20/16 Range/Units 04:02 WBC 6.2 (4.3-11.1) K/mcL Hgb 11.3 L (11.5-15.4) g/dL Hct 34.8 L (35.3-44.9) % Plt Count 90 L (140-400) K/mcL Neutrophils # 3.7 (1.6-8.9) K/mcL BMP 12/20/16 04:02 Sodium 138 Potassium 4.0 Chloride 109 Carbon Dioxide 23 BUN 14 Creatinine 0.64 Glucose 89 Calcium 8.4 L Liver Function 12/20/16 Range/Units 04:02 Total Bilirubin 0.4 (0.2-1.2) mg/dL Direct Bilirubin 0.1 (0.0-0.5) mg/dL AST 13 (5-34) Units/L ALT 21 (0-55) Units/L Alkaline Phosphatase 33 L (38-126) Units/L Albumin 3.1 L (3.5-5.0) g/dL - ABG Interpretation ABG results: PT/INR, D-dimer PT 13.0 Seconds (9.4-12.1) H 12/19/16 08:27 Consult Discharge Plan - Plan Referrals: Rich Ovalles MD [Primary Care Provider] - 12/27/16 2:00 pm
[2016-12-20] MEDS ORDERED: Furosemide 20 MG/2 ML VIAL IVP ONE (15:49)
--- NOTE | 2016-12-20 17:23 | Discharge Summary ---
Date of Encounter: 12/20/16 Time of Encounter: 17:21 - Discharge Diagnosis (1) Syncope Priority: Primary Status: Acute Qualifiers: Syncope type: unspecified Qualified Code(s): R55 - Syncope and collapse (2) Mitral valve stenosis, severe Priority: Primary Status: Acute (3) Nausea vomiting and diarrhea Priority: Primary Status: Acute (4) Dehydration Priority: Primary Status: Acute (5) Tenderness of neck Priority: Primary Status: Resolved (6) Thrombocytopenia Priority: Secondary Status: Chronic - Discharge Medications Home Medications: Acetaminophen [Tylenol] 650 mg PO Q6HR PRN #0 tablet 12/20/16 [Rx] Gabapentin [Neurontin] 600 mg PO BID capsule 12/20/16 [Rx] Naloxone [Narcan] 0.4 mg IVP Q2MIN PRN #0 inj 12/20/16 [Rx] Allergies/Adverse Reactions: Allergies latex Allergy (Verified 12/18/16 01:58) Seizure azithromycin Adverse Reaction (Verified 12/18/16 01:58) Nausea Procedures/tests Complete & Pending: Procedures Performed prior 72 hours Category Date Time Status EV carotid duplex imaging BI Routine Y 12/19/16 08:09 Completed EV echocardiogram Routine Y 12/19/16 08:09 Completed Date of admission: 12/18/16 05:51 Primary care physician: Rich Ovalles MD Consults: 12/19/16 19:00 Consult to Cardiology [CONS] Routine Comment: Consulting Provider: Cardiology [place] Reason for Consult: severe mitral stenosis Call Completed: Yes - Patient Status Disposition: Transfer Critical Access Hosp Condition: Fair - Discharge Instructions Follow Up With: Rich Ovalles MD [Primary Care Provider] - 12/27/16 2:00 pm Hospital course: Ms. Patel is a 26 year old female with past medical history of chronic thrmbocytopenia, polycystic ovarian disease, fibromyalgia and tobacco use who has been dealing with an unknown illness for the past year. She reports that she has seen almost all the specialties in [place] without any answer for her symptoms. She is very vague about her symptoms, she reports extreme fatigue, headaches, arthritis, and pain all over.Her outpatient work up between February 2016 and October [address] has [address] chest, HIV, viral hepatitis, PRATIMA, HLA-B27, RF, CCP, TSH, b12, folate, and RPR. CT abd and pelvis in Jun showed 8 mm splenic cyst or hemangioma, Unremarkable liver and spleen. She was started on prednisone on 12/08/16 for chronic thrombocytopenia since 2013 ( platelets fluctuates in the 90-100s). A week ago, she took bactrim for 7 days to treat a UTI and all her urinary symptoms resolved. Now, she comes after multiple syncopal episodes at home. She report a 3 day history of sudden onset of severe neck tenderness associated with palpitations and since the day prior to admission she developed nausea, vomiting and diarrhea. She remained hemodynamically stable and asymptomatic during this hospitalization. VS stable. EKG showed no new acute changes. CXR negative. troponin x1 negative. Ct head showed no acute intracranial process. unremarkable cbc, bmp and urinarlysis. negative UDS. echocardiogram reveals rheumatic mitral valve, severe mitral stenosis, mod MR, sev dialted LA, severe pulm HTN, mod AR, LVEF 60%. Given new findings of severe mitral setenosis and syncopal episodes as well as 1 year history of non- specific symptoms, the patient was recommended to be transferred to a tertiary care center. PLAN: transfer to [facility]. - Time Spent with Patient Total time spent providing and/or coordinating discharge services: - Constitutional Vitals: Temp Pulse Resp BP Pulse Ox 98.0 F 58 16 114/78 98 12/20/16 15:21 12/20/16 15:21 12/20/16 15:21 12/20/16 15:21 12/20/16 15:21 General appearance: Present: cooperative, A&O X 3, morbidly obese, pleasant, no acute distress, answers questions appropriately
--- NOTE | 2016-12-20 19:05 | Carotid Imaging Report ---
Carotid Duplex Patient Name:Lizbeth Patel Order Number:[id number] Procedure Date:12/19/2016 Date:1990Age:25 yrs Gender:Female Rt.BP:116 / 74 mmHgHeart Rate: Location:[facility] Room #: 24 Bathroom Tiling Professional:Eleanor Cortés, CLIFTON Referring MD:Abigail Story MD manager commercial:Rich Ovalles MD Reading MD:Edmond Kerr MD , FACS Primary Indications:Syncope and collapse Impressions: Findings: Bilateral carotid system are essentially normal. Recommendations: Preliminary noted in pt EMR. Findings Carotid Duplex: Perez scale imaging combined with Doppler flow analysis suggests normal findings bilaterally. Right: The right proximal common carotid artery has a PSV of 151 cm/s and a EDV of 17 cm/s. The right mid common carotid artery has a PSV of 150 cm/s and a EDV of 23 cm/s. The right distal common carotid artery has a PSV of 126 cm/s and a EDV of 22 cm/s. The right bifurcation has a PSV of 91 cm/s and a EDV of 22 cm/s. The right proximal internal carotid artery has a PSV of 72 cm/s and a EDV of 25 cm/s. The right mid internal carotid artery has a PSV of 93 cm/s and a EDV of 34 cm/s. The right distal internal carotid artery has a PSV of 98 cm/s and a EDV of 32 cm/s. The right eca has a PSV of 126 cm/s and a EDV of 21 cm/s. The right vertebral artery has a PSV of 55 cm/s and a EDV of 11 cm/s. There is antegrade spectral Doppler flow patterns. Left: The left proximal common carotid artery has a PSV of 174 cm/s and a EDV of 25 cm/s. The left mid common carotid artery has a PSV of 157 cm/s and a EDV of 26 cm/s. The left distal common carotid artery has a PSV of 115 cm/s and a EDV of 27 cm/s. The left bifurcation has a PSV of 111 cm/s and a EDV of 24 cm/s. The left proximal internal carotid artery has a PSV of 87 cm/s and a EDV of 26 cm/s. The left mid internal carotid artery has a PSV of 107 cm/s and a EDV of 32 cm/s. The left distal internal carotid artery has a PSV of 118 cm/s and a EDV of 39 cm/s. The left eca has a PSV of 125 cm/s and a EDV of 17 cm/s. The left vertebral artery has a PSV of 60 cm/s and a EDV of 14 cm/s. There is antegrade spectral Doppler flow patterns. Prior Study: No prior study available for comparison. Carotid Results Right PSV EDV Assessment Proximal CCA 151 17 Mid CCA 150 23 Distal CCA 126 22 Bifurcation 91 22 Proximal ICA 72 25 Mid ICA 93 34 Distal ICA 98 32 ECA 126 21 Vertebral Artery 55 11 Antegrade Flow Left PSV EDV Assessment Proximal CCA 174 25 Mid CCA 157 26 Distal CCA 115 27 Bifurcation 111 24 Proximal ICA 87 26 Mid ICA 107 32 Distal ICA 118 39 ECA 125 17 Vertebral Artery 60 14 Antegrade Flow Ratio's Right ICA/CCA Ratio: 0.65 ICA/CCA Values: 98/150 Left ICA/CCA Ratio: 0.75 ICA/CCA Values: 118/157 Updated by Edmond Kerr MD, FACS on 12/20/2016 6:59:41 PM Edmond Kerr MD electronically signed on 12/20/2016 7:00:08 PM with status of Final
[2016-12-20] MEDS: 0.9 % Sodium Chloride 1,000 ML IVC SCH (21:32)
[2016-12-20 23:06] VITALS: BP 119/73
== END 2016-12-21 01:30 | disposition short-term general hospital (02) ==
LOC: EMEROO 01:33 → 3BNU 01:33 → SUATTDRO 05:51 → 3BNU 06:09
PROVIDERS: ADMIT Internal Medicine; ATTEND Internal Medicine

== ENCOUNTER 2017-02-08 00:44 | Observation (INO) ==
[2017-02-08] MEDS ORDERED: Ondansetron 4 MG/2 ML VIAL IVP ONE (01:53)
[2017-02-08 02:07] LABS: Basophils % 0.3 %; Eosinophils # 0.1 K/mcL (0.0-0.6); Eosinophils % 1.3 %; Hematocrit 40.2 % (35.3-44.9); Hemoglobin 13.5 g/dL (11.5-15.4); Immature Granulocytes % 0.4 % (0-4); Lymphocytes % 19.5 %; Mean Corpuscular HGB Conc 33.6 g/dL (31.6-35.5); Mean Corpuscular Volume 92.4 fL (83.0-100.0); Mean Platelet Volume 12.7 fL (9.4-12.4); Monocytes # 0.4 K/mcL (0.0-1.3); Neutrophils # 7.8 K/mcL (1.6-8.9); Platelet Count 123 K/mcL (140-400); Red Blood Count 4.35 M/mcL (3.82-4.97); Red Cell Distribution Width 12.6 % (11.5-14.5); Segmented Neutrophils % 74.5 %
[2017-02-08 02:14] LABS: BUN/Creatinine Ratio 23 (6-26); Blood Urea Nitrogen 15 mg/dL (7-20); Calcium 9.1 mg/dL (8.6-10.8); Carbon Dioxide 21 mEq/L (19-29); Chloride 107 mEq/L (98-109); Glucose 110 mg/dL (70-99); Osmolality,Calculated 287 (280-300); Potassium 3.5 mEq/L (3.5-4.5); Sodium 138 mEq/L (136-145); eGFR For African Americans > 60 (> 60); eGFR For Non-African Americans > 60 (> 60)
[2017-02-08 02:28] LABS: Bilirubin,Urine Negative (Negative); Blood,Urine Negative (Negative); Clarity,Urine Clear (Clear); Color,Urine Yellow (Yellow); Glucose,Urine (UA) Normal (Normal); Ketones,Urine Negative (Negative); Leukocyte Esterase,Urine Negative (Negative); Nitrite,Urine Negative (Negative); Protein,Urine Negative (Neg-Trace); Specific Gravity,Urine 1.013 (1.010-1.025); Urobilinogen,Urine Normal (Normal)
--- NOTE | 2017-02-08 02:28 | Emergency Department Note ---
Disposition Clinical Impression: Syncope Qualifiers: Syncope type: unspecified Qualified Code(s): R55 - Syncope and collapse Disposition: Admitted As Inpatient Condition: Good Referrals: Rich Ovalles MD [Primary Care Provider] - Forms: ED Satisfaction Letter Time of Disposition: 03:16 Syncope HPI - General Chief Complaint: ED Syncope Stated Complaint: Syncopal Episode/GARCIA/NV Time Seen by Provider: 02/08/17 01:08 Source: patient Mode of arrival: ambulatory Limitations: no limitations Nursing Notes Reviewed: Yes Vital Signs Reviewed: Yes - History of Present Illness HPI Narrative: 26-year-old female presents after syncopal episode just prior to arrival in which she felt nauseated for a few hours, then became more nauseated and lightheaded, vomited, and passed out onto the bathroom floor. She denies any injury. She states that she feels essentially back to normal this time, but does still feel weak and has shortness of breath with mild exertion. She has a significant cardiac history including severe rheumatic heart disease and severe valvular disease and multiple valves. She is status post valvuloplasty of the mitral valve at [facility] one month ago where her surgeon told her that if she has any further syncopal or near syncopal episode she will need to be admitted to the hospital for evaluation. She denies any chest pain or shortness of breath at rest, fevers, productive cough, change in bowel movements or urination, abdominal pain, rashes or edema. Pt Subjective Complaint: loss of consciousness - Related Data Previous Rx's Medication Instructions Recorded Acetaminophen [Tylenol] 650 mg PO Q6HR PRN #0 tablet 12/20/16 Gabapentin [Neurontin] 600 mg PO BID capsule 12/20/16 Naloxone [Narcan] 0.4 mg IVP Q2MIN PRN #0 inj 12/20/16 Allergies Allergy/AdvReac Type Severity Reaction Status Date / Time latex Allergy Seizure Verified 02/08/17 00:47 azithromycin AdvReac Nausea Verified 02/08/17 00:47 All systems ED: reviewed and negative except as stated. Past Medical History - Past Medical History Attestation: Yes The following information was validated with the patient. 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 - Social History Smoking Status: Current every day smoker Smokeless Tobacco Status: No Alcohol use: Reports: none Drug use: Reports: none Physical Exam - Head Head exam: atraumatic, normocephalic, normal inspection - Eye Eye exam: Present: normal appearance, PERRL, EOMI - ENT ENT exam: normal exam, normal oropharynx, mucous membranes moist - Neck Neck exam: Present: normal inspection, full ROM, trachea midline - Chest Chest inspection: Present: normal inspection, symmetric chest wall rise - Respiratory Respiratory exam: Clear to auscultation bilaterally without wheezes rales or rhonchi Cardiovascular Patient has 3 out of 5 diastolic and systolic murmurs. Urinary rate and rhythm. - Abdominal Exam Abdominal exam: Present: soft, Non-Tender. Absent: tenderness, distention, guarding, rebound, rigidity - Extremities Exam No edema or rashes. Normal distal pulses. - Back Exam Back exam: Present: normal inspection, full ROM. Absent: tenderness, CVA tenderness (R), CVA tenderness (L) - Neurological Exam Neurological exam: Present: alert, oriented X3, CN II-XII intact - Psychiatric Psychiatric exam: Present: normal affect, normal mood - Skin Skin exam: Present: warm, dry, intact, normal color - General Limitations: no limitations General appearance: alert Course - Reevaluation(s) Reevaluation #1: Patient stable throughout her time in the emergency department. Normal vitals and labs and chest x-ray. EKG nonischemic. Given her history however she will need to be brought in for observation and likely repeat ultrasound after her valvuloplasty one month ago. Time: 03:19 Reevaluation #2: Patient stable on reassessment. Accepted by Dr. Bowles. Time: 03:38 Vital Signs Temperature 98.1 F 02/08/17 00:47 Pulse Rate 86 02/08/17 00:47 Respiratory Rate 20 02/08/17 00:47 Blood Pressure 129/81 02/08/17 00:47 O2 Sat by Pulse Oximetry 99 02/08/17 00:47 Temperature 98.1 F 02/08/17 00:47 Pulse Rate 68 02/08/17 02:52 Respiratory Rate 16 02/08/17 02:52 Blood Pressure 128/66 02/08/17 02:52 O2 Sat by Pulse Oximetry 95 02/08/17 02:52 Oxygen Delivery Oxygen Delivery Room Air Syncope - Lab Data Result diagrams: 02/08/17 01:28 02/08/17 01:28 Lab Results 02/08/17 02/08/17 02/08/17 Range/Units 01:28 01:28 01:28 WBC 10.5 (4.3-11.1) K/mcL RBC 4.35 (3.82-4.97) M/mcL Hgb 13.5 (11.5-15.4) g/dL Hct 40.2 (35.3-44.9) % MCV 92.4 (83.0-100.0) fL MCH 31.0 (28.0-33.3) pg MCHC 33.6 (31.6-35.5) g/dL RDW 12.6 (11.5-14.5) % Plt Count 123 L (140-400) K/mcL MPV 12.7 H (9.4-12.4) fL Immature Gran % 0.4 (0-4) % Seg Neutrophils % 74.5 % Lymphocytes % 19.5 % Monocytes % 4.0 % Eosinophils % 1.3 % Basophils % 0.3 % Neutrophils # 7.8 (1.6-8.9) K/mcL Lymphocytes # 2.0 (0.6-4.6) K/mcL Monocytes # 0.4 (0.0-1.3) K/mcL Eosinophils # 0.1 (0.0-0.6) K/mcL Basophils # 0.0 (0.0-0.2) K/mcL Sodium 138 (136-145) mEq/L Potassium 3.5 (3.5-4.5) mEq/L Chloride 107 (98-109) mEq/L Carbon Dioxide 21 (19-29) mEq/L BUN 15 (7-20) mg/dL Creatinine 0.65 (0.57-1.11) mg/dL Est GFR ( Amer) > 60 (> 60) Est GFR (Non-Af Amer) > 60 (> 60) BUN/Creatinine Ratio 23 (6-26) Glucose 110 H (70-99) mg/dL Calculated Osmolality 287 (280-300) Calcium 9.1 (8.6-10.8) mg/dL Troponin I 0.00 (0-0.03) ng/mL Urine Color (Yellow) Urine Clarity (Clear) Urine pH (5.0-8.0) pH Units Ur Specific [place] (1.010-1.025) Urine Protein (Neg-Trace) mg/dL Urine Glucose (UA) (Normal) mg/dL Urine Ketones (Negative) mg/dL Urine Blood (Negative) Urine Nitrite (Negative) Urine Bilirubin (Negative) Urine Urobilinogen (Normal) mg/dL Ur Leukocyte Esterase (Negative) Ur Culture Indicated? (NO) Urine Test (Negative) 02/08/17 02/08/17 Range/Units 02:04 02:04 WBC (4.3-11.1) K/mcL RBC (3.82-4.97) M/mcL Hgb (11.5-15.4) g/dL Hct (35.3-44.9) % MCV (83.0-100.0) fL MCH (28.0-33.3) pg MCHC (31.6-35.5) g/dL RDW (11.5-14.5) % Plt Count (140-400) K/mcL MPV (9.4-12.4) fL Immature Gran % (0-4) % Seg Neutrophils % % Lymphocytes % % Monocytes % % Eosinophils % % Basophils % % Neutrophils # (1.6-8.9) K/mcL Lymphocytes # (0.6-4.6) K/mcL Monocytes # (0.0-1.3) K/mcL Eosinophils # (0.0-0.6) K/mcL Basophils # (0.0-0.2) K/mcL Sodium (136-145) mEq/L Potassium (3.5-4.5) mEq/L Chloride (98-109) mEq/L Carbon Dioxide (19-29) mEq/L BUN (7-20) mg/dL Creatinine (0.57-1.11) mg/dL Est GFR ( Amer) (> 60) Est GFR (Non-Af Amer) (> 60) BUN/Creatinine Ratio (6-26) Glucose (70-99) mg/dL Calculated Osmolality (280-300) Calcium (8.6-10.8) mg/dL Troponin I (0-0.03) ng/mL Urine Color Yellow (Yellow) Urine Clarity Clear (Clear) Urine pH 6.0 (5.0-8.0) pH Units Ur Specific [place] 1.013 (1.010-1.025) Urine Protein Negative (Neg-Trace) mg/dL Urine Glucose (UA) Normal (Normal) mg/dL Urine Ketones Negative (Negative) mg/dL Urine Blood Negative (Negative) Urine Nitrite Negative (Negative) Urine Bilirubin Negative (Negative) Urine Urobilinogen Normal (Normal) mg/dL Ur Leukocyte Esterase Negative (Negative) Ur Culture Indicated? NO (NO) Urine Test Negative (Negative) - EKG Data EKG attestation: Yes I reviewed and interpreted this EKG. EKG results narrative: EKG shows normal sinus rhythm at 81 with normal axis and intervals. No ST elevation or depression. There are septal T-wave inversions. No old EKG available this time.
--- NOTE | 2017-02-08 03:15 | Emergency Department Note ---
Disposition Clinical Impression: Syncope Disposition: Admitted As Inpatient Condition: Good General Adult HPI - General Chief complaint: ED Syncope Stated complaint: Syncopal Episode/GARCIA/NV Time Seen by Provider: 02/08/17 01:08 Source: patient Mode of arrival: ambulatory Limitations: no limitations - History of Present Illness Pain Scale: 3 - Related Data Previous Rx's Medication Instructions Recorded Acetaminophen [Tylenol] 650 mg PO Q6HR PRN #0 tablet 12/20/16 Gabapentin [Neurontin] 600 mg PO BID capsule 12/20/16 Naloxone [Narcan] 0.4 mg IVP Q2MIN PRN #0 inj 12/20/16 Allergies Allergy/AdvReac Type Severity Reaction Status Date / Time latex Allergy Seizure Verified 02/08/17 00:47 azithromycin AdvReac Nausea Verified 02/08/17 00:47 Past Medical History - Past Medical History Medical history: Reports: GERD, valvular heart disease, other Surgical history: Reports: , cholecystectomy Psychiatric history: Reports: no psych history [employer]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 Acevedo. Patient presents with a syncopal episode. She had been nauseous for a couple of hours and then was in the bathroom and threw up and says she woke up on the floor. No report of injury. On the surface it sounds like a vasovagal event. However, the patient has recently been admitted for syncopal issues and workup revealed severe mitral stenosis as well as aortic stenosis and pulmonary hypertension which they felt was a result of rheumatic disease. Bout 6 weeks ago she had a valvuloplasty done at [facility] to open up the mitral valve. Given that history, the syncope becomes more concerning. We will go ahead and admit her to the hospital for further evaluation. Time: 03:15 Vital Signs Temperature 98.1 F 02/08/17 00:47 Pulse Rate 86 02/08/17 00:47 Respiratory Rate 20 02/08/17 00:47 Blood Pressure 129/81 02/08/17 00:47 O2 Sat by Pulse Oximetry 99 02/08/17 00:47 Temperature 98.3 F 02/08/17 04:41 Pulse Rate 67 02/08/17 04:41 Respiratory Rate 18 02/08/17 04:41 Blood Pressure 102/63 02/08/17 04:41 O2 Sat by Pulse Oximetry 97 02/08/17 04:41 Oxygen Delivery Oxygen Delivery Room Air Medical Decision Making - Lab Data Result diagrams: 02/08/17 01:28 02/08/17 01:28 Lab Results 02/08/17 02/08/17 02/08/17 Range/Units 01:28 01:28 01:28 WBC 10.5 (4.3-11.1) K/mcL RBC 4.35 (3.82-4.97) M/mcL Hgb 13.5 (11.5-15.4) g/dL Hct 40.2 (35.3-44.9) % MCV 92.4 (83.0-100.0) fL MCH 31.0 (28.0-33.3) pg MCHC 33.6 (31.6-35.5) g/dL RDW 12.6 (11.5-14.5) % Plt Count 123 L (140-400) K/mcL MPV 12.7 H (9.4-12.4) fL Immature Gran % 0.4 (0-4) % Seg Neutrophils % 74.5 % Lymphocytes % 19.5 % Monocytes % 4.0 % Eosinophils % 1.3 % Basophils % 0.3 % Neutrophils # 7.8 (1.6-8.9) K/mcL Lymphocytes # 2.0 (0.6-4.6) K/mcL Monocytes # 0.4 (0.0-1.3) K/mcL Eosinophils # 0.1 (0.0-0.6) K/mcL Basophils # 0.0 (0.0-0.2) K/mcL Sodium 138 (136-145) mEq/L Potassium 3.5 (3.5-4.5) mEq/L Chloride 107 (98-109) mEq/L Carbon Dioxide 21 (19-29) mEq/L BUN 15 (7-20) mg/dL Creatinine 0.65 (0.57-1.11) mg/dL Est GFR ( Amer) > 60 (> 60) Est GFR (Non-Af Amer) > 60 (> 60) BUN/Creatinine Ratio 23 (6-26) Glucose 110 H (70-99) mg/dL Calculated Osmolality 287 (280-300) Calcium 9.1 (8.6-10.8) mg/dL Troponin I 0.00 (0-0.03) ng/mL Urine Color (Yellow) Urine Clarity (Clear) Urine pH (5.0-8.0) pH Units Ur Specific [place] (1.010-1.025) Urine Protein (Neg-Trace) mg/dL Urine Glucose (UA) (Normal) mg/dL Urine Ketones (Negative) mg/dL Urine Blood (Negative) Urine Nitrite (Negative) Urine Bilirubin (Negative) Urine Urobilinogen (Normal) mg/dL Ur Leukocyte Esterase (Negative) Ur Culture Indicated? (NO) Urine Test (Negative) 02/08/17 02/08/17 Range/Units 02:04 02:04 WBC (4.3-11.1) K/mcL RBC (3.82-4.97) M/mcL Hgb (11.5-15.4) g/dL Hct (35.3-44.9) % MCV (83.0-100.0) fL MCH (28.0-33.3) pg MCHC (31.6-35.5) g/dL RDW (11.5-14.5) % Plt Count (140-400) K/mcL MPV (9.4-12.4) fL Immature Gran % (0-4) % Seg Neutrophils % % Lymphocytes % % Monocytes % % Eosinophils % % Basophils % % Neutrophils # (1.6-8.9) K/mcL Lymphocytes # (0.6-4.6) K/mcL Monocytes # (0.0-1.3) K/mcL Eosinophils # (0.0-0.6) K/mcL Basophils # (0.0-0.2) K/mcL Sodium (136-145) mEq/L Potassium (3.5-4.5) mEq/L Chloride (98-109) mEq/L Carbon Dioxide (19-29) mEq/L BUN (7-20) mg/dL Creatinine (0.57-1.11) mg/dL Est GFR ( Amer) (> 60) Est GFR (Non-Af Amer) (> 60) BUN/Creatinine Ratio (6-26) Glucose (70-99) mg/dL Calculated Osmolality (280-300) Calcium (8.6-10.8) mg/dL Troponin I (0-0.03) ng/mL Urine Color Yellow (Yellow) Urine Clarity Clear (Clear) Urine pH 6.0 (5.0-8.0) pH Units Ur Specific [place] 1.013 (1.010-1.025) Urine Protein Negative (Neg-Trace) mg/dL Urine Glucose (UA) Normal (Normal) mg/dL Urine Ketones Negative (Negative) mg/dL Urine Blood Negative (Negative) Urine Nitrite Negative (Negative) Urine Bilirubin Negative (Negative) Urine Urobilinogen Normal (Normal) mg/dL Ur Leukocyte Esterase Negative (Negative) Ur Culture Indicated? NO (NO) Urine Test Negative (Negative) Attestation Statement - Attestation Attestation: I, Dr. Luo, examined this patient [id number] and my medical decision- making was reviewed with Dr. Acevedo, Resident Physician. I agree with the documented findings, disposition and treatment plan as described except to the extent set forth below. Please see my progress note for details.
[2017-02-08] MEDS ORDERED: Naloxone 0.4 MG/ML INJ IVP PRN (05:06)
[2017-02-08] MEDS ORDERED: Acetaminophen 325 MG TABLET PO PRN (05:06)
[2017-02-08] MEDS ORDERED: Ondansetron 4 MG/2 ML VIAL IVP PRN (05:06)
--- NOTE | 2017-02-08 05:11 | Internal Med History&Physical ---
Date of Encounter: 02/08/17 Time of Encounter: 04:45 Assessment and Plan (1) Syncope Current visit: Yes Status: Acute Could be vasovagal, but need to r/o cardiac etiology given her significant valvular heart disease. Will repeat Echocardiogram and consult Cardiology for further recommendations. Continue Telemetry monitoring. Qualifiers: Syncope type: vasovagal syncope Qualified Code(s): R55 - Syncope and collapse (2) Mitral valve stenosis, severe Current visit: Yes Status: Chronic s/p mitral valve balloon repair at [facility]; recheck Echocardiogram to assess valves; (3) History of PCOS Current visit: Yes Status: Chronic continue Metformin; outpatient f/up; (4) Thrombocytopenia Current visit: Yes Status: Chronic currently stable; follows with outpatient Hematology and intermittent rapid steroid taper treatment; Internal Medicine - H&P: HPI Chief complaint: Syncope Admitted From: Emergency Dept Plans for Post Hospital Care: Home History of present illness: Ms. Patel is a 26 year old female with h/o- valvular heart disease and recent mitral valve balloon repair, presents with c/o- syncope this afternoon. This was unwitnessed and similar to her previous several episodes of syncopal episodes. She lost consciousness for a few seconds probably, not associated with chest pain, diaphoresis, leg swelling or dyspnea, but she usually does have nausea and emesis with these episodes. She was recently admitted with similar complaints and noted to have mitral stenosis and aortic regurgitation and transferred to [facility] and underwent mitral valve repair. This is her first episode since her surgery. Past Med Surg Social Fam HX - Past Medical History Source: patient Medical history: GERD, syncope, valvular heart disease, other Psychiatric history: no psych history - Past Surgical History Surgical History: , cholecystectomy - Social History Smoking Status: Current every day smoker Smokeless Tobacco Status: No Alcohol use: none Drug use: none Occupational status: unemployed Current living situation: Home, With Family Activity Level: Independent ambulation Recent Out of Country Travel Within the Last 8 Weeks: No Exposure or Possible Exposure to Illness During Travel: No - Family History Father Living Status: Still Living Hx Family Endocrine Disorder: Yes (DIABETES MELLITUS) Hx Family Autoimmune Disorders: Yes (RA) Mother Living Status: Still Living Hx Family Autoimmune Disorders: Yes Hx Family Medical Disorders: Yes (HTN) Internal Medicine - H&P: Meds Acetaminophen [Tylenol] 650 mg PO Q6HR PRN #0 tablet 12/20/16 [Rx] Gabapentin [Neurontin] 600 mg PO BID capsule 12/20/16 [Rx] Naloxone [Narcan] 0.4 mg IVP Q2MIN PRN #0 inj 12/20/16 [Rx] Allergies latex Allergy (Verified 02/08/17 00:47) Seizure azithromycin Adverse Reaction (Verified 02/08/17 00:47) Nausea All Systems PM: A 10-system review of systems was performed and is negative for pertinent findings except as documented above in the HPI. - Constitutional Constitutional: no chills, no fever(s), no night sweats - EENT Eyes: no change in vision, no discharge, no pain, no photophobia Ears: no ear discharge, no ear pain, no tinnitus Nose, mouth and throat: no dysphagia, no nasal discharge, no neck pain, no sore throat - Cardiovascular Cardiovascular ROS IM: syncope, no chest pain, no diaphoresis, no dyspnea, no lightheadedness, no palpitations - Respiratory Respiratory: no cough, no dyspnea, no wheezing, no excessive phlegm production - Gastrointestinal Gastrointestinal: no abdominal pain, no diarrhea, no hematemesis, no hematochezia, no melena, no nausea, no vomiting - Genitourinary Genitourinary: no change in urinary stream, no dysuria, no flank pain, no hematuria - Musculoskeletal Musculoskeletal ROS IM: no numbness, no tingling - Integumentary Integumentary IM: no rash, no unusual bruising - Neurological Neurological ROS: no confusion, no convulsions, no focal weakness, no numbness, no tingling, no tremor(s) - Hematologic/Lymphatic Hematologic/Lymphatic: no easy bruising - Constitutional Vitals: Temp Pulse Resp BP Pulse Ox 98.3 F 67 18 102/63 97 02/08/17 04:41 02/08/17 04:41 02/08/17 04:41 02/08/17 04:41 02/08/17 04:41 General appearance: Present: A&O X 3, answers questions appropriately - Respiratory Respiratory exam: Present: CTAB. Absent: accessory muscle use, rales, rhonchi, wheezes - Cardiovascular Cardiovascular exam: Present: RRR, +S1, +S2. Absent: diastolic murmur, gallop, rubs, systolic murmur - GI/Abdominal GI/Abdominal exam: Present: normal bowel sounds, soft, no peritoneal signs. Absent: distended, tenderness - Extremities Exam Extremities exam: Present: full ROM, warm, radial pulses palpable and symetrical. Absent: calf tenderness, cyanotic, pedal edema - Neurological Exam Neurological exam: Present: CN II-XII intact, oriented X3, no focal deficits. Absent: pronater drift, facial droop, speech deficit - Skin Skin exam: Present: dry, intact Internal Med - H&P Results - Labs CBC & Chem 7: 02/08/17 01:28 02/08/17 01:28 - EKG Data -: EKG Interpreted by Myself EKG shows normal: sinus rhythm Rate: normal
--- NOTE | 2017-02-08 09:06 | Cardiology Consult Note ---
Date of Encounter: 02/08/17 Time of Encounter: 09:30 Assessment and Plan (1) Syncope Current Visit: Yes Status: Acute Per Cardiology: Past history of syncope. First recurrent episode since mitral valve procedure at [facility] about one month ago. Serum negative. Urine negative for UTI. Trop negative. Recent carotid duplex November 2016 showed bilateral normal carotids. Current systolic blood pressures noted to be 100s to 110s. Check orthostatics. No events noted on telemetry, continue to monitor. Echo pending, further recs after echo. Qualifiers: Syncope type: vasovagal syncope Qualified Code(s): R55 - Syncope and collapse (2) Mitral valve stenosis, severe Current Visit: Yes Status: Chronic Per Cardiology: Most recent echo from December 18, 2016 showed severe mitral stenosis, likely severe tricuspid stenosis, moderate mitral regurgitation, rheumatic mitral valve of which vegetation could not be ruled out, at least moderately dilated right atrium, severely dilated left atrium, severe pulmonary hypertension, mild aortic stenosis, moderate aortic regurgitation, EF 60-65%, no segmental wall motion abnormalities. Apparently underwent mitral valve balloon repair at [facility] within the past few months. Will obtain medical records. (3) Thrombocytopenia Current Visit: Yes Status: Chronic Per Cardiology: PLT around baseline. Follows with outpatient Hematology. Denies any active bleeding or blood loss. Discussion w patient/family: The assessment and plan as outlined above was discussed with the patient who expressed understanding and agreement. All questions were answered. Thank you for involving us in the care of your patient. Please call with any questions. History of Present Illness Consult date: 02/08/17 Requesting physician: Pennie Smith Consult reason: Syncope, Recent Valve Procedure Chief complaint: Nausea, Passed out History of present illness: Ms. Patel is a 26 year old female with a relevant past history of rheumatic heart disease with subsequent severe mitral and tricuspid stenosis, severe pulmonary hypertension, mild aortic stenosis and moderate aortic regurgitation, chronic thrombocytopenia follows with oncology, nicotine abuse, and past history of syncope. Cardiology consult for syncopal event status post mitral valve surgery. Patient confirms recent [facility] evaluation with mitral valve angioplasty. She reports yesterday evening while watching television she developed symptoms of dizziness and nausea. She reports while in the bathroom feeling nauseous by toilet she reports she passed out. She denies any traumatic event or fall. She reports this is first event since her surgery. She reports symptoms similar to what she experienced prior to her procedure. She denies any chest pain, short of breath, palpitations. Denies any awareness any bleeding or blood loss. She denies any strokelike symptoms. Past Med Surg Social Fam HX - Past Medical History Source: patient, old records reviewed Medical history: GERD, syncope, valvular heart disease, other Psychiatric history: no psych history - Past Surgical History Surgical History: , cholecystectomy - Social History Smoking Status: Current every day smoker Smokeless Tobacco Status: No Alcohol use: none Drug use: none - Family History Father Living Status: Still Living Hx Family Endocrine Disorder: Yes (DIABETES MELLITUS) Hx Family Autoimmune Disorders: Yes (RA) Mother Living Status: Still Living Hx Family Autoimmune Disorders: Yes Hx Family Medical Disorders: Yes (HTN) Medications and Allergies Gabapentin [Neurontin] 600 mg PO BID capsule 12/20/16 [Rx] Aspirin [Lo-Dose Aspirin EC] 81 mg PO DAILY 02/08/17 [History] Tizanidine HCl [Tizanidine HCl] 4 mg PO Q8H PRN 02/08/17 [History] metFORMIN [Glucophage] 500 mg PO BID 02/08/17 [History] Allergies latex Allergy (Verified 02/08/17 07:47) See Comments SWELLING azithromycin Adverse Reaction (Verified 02/08/17 07:47) Nausea All Systems Review: A 10-system review of systems was performed and is negative for pertinent findings except as documented above in the HPI. - Cardiovascular Cardiovascular: as per HPI, lightheadedness - Gastrointestinal Gastrointestinal: nausea - Neurological Neurological: syncope Physical Examination Vital Signs, Last 4 Hours Temp Pulse Resp BP Pulse Ox 02/08/17 07:14 97.8 F 64 16 109/70 96 General: Conversant, No Apparent Distress HEENT: Atraumatic, Normocephaly, Mucus Membranes Moist Neck: No JVD, Normal carotid pulses Cardiac: Reg Rate and Rhythm, Normal S1 and S2, Other (unable to fully auscultate during echo) Lungs: Normal Breath Sounds, No Wheeze, Rales, Rhonchi Neuro: Alert and responsive, No focal deficits noted Abdomen: Soft, Non-Tender Skin: No rashes noted on visualized skin Musculoskeletal: No Chest Wall Tenderness Extremities: No Edema, Normal Pulses Results 02/08/17 01:28 02/08/17 01:28 Laboratory Tests 02/08/17 02/08/17 02/08/17 01:28 01:28 02:04 Plt Count 123 L Troponin I 0.00 Ur Leukocyte Esterase Negative Ur Culture Indicated? NO Urine Test 02/08/17 02:04 Plt Count Troponin I Ur Leukocyte Esterase Ur Culture Indicated? Urine Test Negative ITS Impressions Chest X-Ray 02/08/17 01:53 IMPRESSION: No acute cardiopulmonary disease. D/ / Levi Moore MD / Levi Moore MD Interpreting Provider: Levi Moore MD Active Medications Acetaminophen (Tylenol) 650 mg PO Q6HR PRN PRN Reason: Mild Pain (1-3) Stop: 08/10/17 05:07 Naloxone HCl (Narcan) 0.4 mg IVP Q2MIN PRN PRN Reason: Opioid Reversal Stop: 08/10/17 05:07 Omeprazole (Prilosec) 20 mg PO DAILY@0630 DIVYA PRN Reason: Protocol Stop: 08/10/17 06:31 Ondansetron HCl (Zofran) 4 mg IVP Q8HR PRN PRN Reason: Nausea And Vomiting Stop: 08/10/17 05:07 - Imaging and Cardiology Chest Xray: report reviewed Echo: pending, report reviewed - EKG Interpretation EKG results cardiology: personally reviewed, normal ECG, sinus rhythm, other (24 -hour telemetry reviewed with average heart rate 66, sinus rhythm, no significant events noted, overall poor quality tracings) Consult Discharge Plan - Plan Referrals: Rich Ovalles MD [Primary Care Provider] - 02/17/17 3:00 pm (Please address February 28 appointment at this appointment)
[2017-02-08 15:21] VITALS: BP 101/67
--- NOTE | 2017-02-08 15:48 | ECHO - Doppler Report ---
Echocardiogram Name: Lizbeth Patel Date of Study: 02/08/2017 Date: 1990 Ht: 62.0 in Medical Record#: [id number] Age: 26 Wt: 190.0 lb Gender: Female BSA: 1.87 Order #: [id number] Location: [facility] Room #: 3B Reading Physician: Chico Collins MD, [facility] Dialysis Patient Care Technician: Vince Britt Ordering Physician: Hallie Smith MD Primary Physician: Indications: Syncope, S/P mitral valve repair Impressions: Normal LV systolic function, LVEF 65-70%. Normal right ventricular size and function. Moderate-severely dilated left atrium. Rheumatic appearing mitral valve with thickened leaflets. Moderate mitral stenosis. Mean gradient = 8 mmHg. Mild-moderate mitral regurgitation. Aortic valve not well visualized. Mild aortic stenosis. Moderate aortic regurgitation. Restricted motion of tricuspid valve leaflets. Mild tricuspid regurgitation. No evidence of pulmonary hypertension. Left Ventricular Wall Motion: Rest Echo Findings All wall segments showed normal motion. Findings: Study Quality * Technically adequate exam. ECG Findings * Normal sinus rhythm. Left Ventricle * Normal LV systolic function, LVEF 65-70%. * Normal LV chamber size and wall thickness. * Indeterminate diastolic function. Right Ventricle * Normal right ventricular size and function. Left Atrium * Moderate-severely dilated left atrium. Right Atrium * Normal right atrial size. Aorta * Normally sized aortic root. Pericardium * There is a trivial pericardial effusion present. IVC * The IVC is not dilated. Mitral Valve * Rheumatic appearing mitral valve with thickened leaflets. * Moderate mitral stenosis. Mean gradient = 8 mmHg. * Mild-moderate mitral regurgitation. Tricuspid Valve * Restricted motion of tricuspid valve leaflets. * No tricuspid stenosis. * Mild tricuspid regurgitation. * No evidence of pulmonary hypertension. Aortic Valve * Aortic valve not well visualized. * Mild aortic stenosis. * Moderate aortic regurgitation. Pulmonic Valve * Pulmonic valve not well visualized. * No pulmonic stenosis. * Trace pulmonic regurgitation. History Rheumatic Fever Valvular Disease 12/19/2016 a Previous Echo was performed. Measurements: BP: 109/ 70 2D Normal Values RVIDd: 2.30 cm IVSd: .70 cm 0.6 - 1.0 cm LVIDd: 4.60 cm 3.7 - 5.6 cm LVPWd: .80 cm 0.6 - 1.1 cm LVIDs: 2.90 cm 1.5 - 3.6 cm AO: 2.50 cm < 4.0 cm LVOT Diam: 2.00 cm LA volume: 80 Mitral Valve Peak Velocity 2.11 m/sec Peak Grad:18.00 mmHg Mean Grad:8.00 mmHg Aortic Valve Peak Telly:2.78 m/sec Peak Grad:31.00 mmHg Mean Grad:15.00 mmHg Valve Area:1.79 cm2 Tricuspid Valve TV Regurg Peak Grad: 27.00mmHg TV Regurg Peak Telly: 2.61m/sec Updated by Chico Collins MD, [facility] on 02/08/2017 3:43:52 PM electronically signed on 02/08/2017 3:45:04 PM with status of Final Wall Motion [place]: 1=Normal, 2=Hypokinesis, 3=Akinesis, 4=Dyskinesis, 5=Aneurysmal, 6=Hyperkinetic, X=Not Visualized (Blank)=Missing
--- NOTE | 2017-02-08 16:47 | Discharge Summary ---
Date of Encounter: 02/08/17 Time of Encounter: 16:15 - Discharge Diagnosis (1) Syncope Priority: Primary Status: Acute Comments: Suspect vasovagal secondary to nausea and dry heaving that preceded this event. HCG negative. UTI ruled out. Troponin negative. Carotid duplex from November. Echo consistent with prior reports and revealing ejection fraction of 65-70%. Patient stating she would like to trial a prescription of Zofran to possibly prevent these episodes once she starts to feel nausea which perceives any syncopal episodes. She will see [facility] tomorrow. Qualifiers: Syncope type: vasovagal syncope Qualified Code(s): R55 - Syncope and collapse (2) Mitral valve stenosis, severe Priority: Secondary Status: Chronic (3) History of PCOS Priority: Secondary Status: Chronic Comments: On metformin; follow-up outpatient (4) Thrombocytopenia Priority: Secondary Status: Chronic Comments: Acute on chronic and currently at the high end of her normal, follow-up outpatient with hematology - Discharge Medications Prescriptions: Ondansetron ODT [Zofran ODT] 4 mg SL Q6HR PRN #15 tab.rapdis PRN Reason: Nausea And Vomiting Home Medications: Gabapentin [Neurontin] 600 mg PO BID capsule 12/20/16 [Rx] Aspirin [Lo-Dose Aspirin EC] 81 mg PO DAILY 02/08/17 [History] Ondansetron ODT [Zofran ODT] 4 mg SL Q6HR PRN #15 tab.rapdis 02/08/17 [Rx] Tizanidine HCl 4 mg PO Q8H PRN 02/08/17 [History] metFORMIN [Glucophage] 500 mg PO BID 02/08/17 [History] Allergies/Adverse Reactions: Allergies latex Allergy (Verified 02/08/17 07:47) See Comments SWELLING azithromycin Adverse Reaction (Verified 02/08/17 07:47) Nausea Procedures/tests Complete & Pending: Procedures Performed prior 72 hours Category Date Time Status EV echocardiogram Routine Y 02/08/17 05:07 Completed Date of admission: 02/08/17 03:50 Primary care physician: Rich Ovalles MD Consults: 02/08/17 05:07 Consult to Cardiology [CONS] Routine Comment: Consulting Provider: Cardiology Caspian Reason for Consult: Syncope, s/p MV balloon repair Call Completed: Yes Discharging clinician: Yisel Higginbotham Anticipated date of discharge: 02/08/17 - Patient Status Disposition: Home, Self-Care Condition: Good Functional capacity at discharge: independent ambulation Overall status at discharge: patient is back to baseline - Discharge Instructions Follow Up With: Rich Ovalles MD [Primary Care Provider] - 02/17/17 3:00 pm (Please address February 28 appointment at this appointment) Clinic, [place] [Other] Additional Instructions: Follow-up with primary care provider as scheduled. Follow-up with [facility] as scheduled tomorrow - Diet and Activity Activity: increase activity as tolerated Diet: advance to your usual diet Hospital course: Ms. Patel is a 26 year old female with past medical history valvular heart disease with recent mitral valve balloon repair at [facility] 1 month ago , PCO S, tobacco abuse, GERD, syncope. Patient presented to the emergency department chief complaint syncope. Episode was unwitnessed and similar to her prior episodes. She states she lost consciousness for a few seconds and denied associated symptoms. She denied chest pain, diaphoresis, leg swelling or dyspnea. Patient stating she has nausea and emesis prior to these episodes. Patient was recently admitted with similar complaints and noted to have mitral stenosis and aortic regurgitation at which time she was transferred to [facility] with subsequent mitral valve repair. This is her first syncopal episode since her surgery last month. Workup in the emergency department unremarkable. Chest x-ray negative. Urinalysis negative. Thrombocytopenia consistent with her baseline. She was admitted to the hospitalist service for further evaluation and management. Cardiology was brought on board. Echocardiogram was obtained which revealed an ejection fraction of 65-70%, moderate mitral stenosis, mild to moderate MR, mild left ear , moderate AR with restricted motion of tricuspid valve leaflets and mild TR. Patient was asymptomatic throughout this admission. She was able to tolerate a regular diet. Will prescribe ondansetron ODT tablets for the patient to use at the onset of her nausea to possibly prevent syncopal episodes that could potentially be related to vasovagal etiology. Per cardiology, patient will follow-up with [facility] on the day after discharge. She was discharged home in stable condition with close outpatient follow-up recommended. ITS Impressions Chest X-Ray 02/08/17 01:53 IMPRESSION: No acute cardiopulmonary disease. D/ / Levi Moore MD / Levi Moore MD Interpreting Provider: Levi Moore MD Echocardiogram impressions: Normal LV systolic function, LVEF 65-70%. Normal right ventricular size and function. Moderate-severely dilated left atrium. Rheumatic appearing mitral valve with thickened leaflets. Moderate mitral stenosis. Mean gradient equals 8 mmHg. Mild-moderate mitral regurgitation. Aortic valve not well visualized. Mild aortic stenosis. Moderate aortic regurgitation. Restricted motion of tricuspid valve leaflets. Mild tricuspid regurgitation. No evidence of pulmonary hypertension. - Time Spent with Patient Total time spent providing and/or coordinating discharge services: - Constitutional Vitals: Temp Pulse Resp BP Pulse Ox 97.9 F 59 16 101/67 98 02/08/17 15:20 02/08/17 15:20 02/08/17 15:20 02/08/17 15:20 02/08/17 15:20 General appearance: Present: A&O X 3, pleasant, no acute distress, answers questions appropriately - Head Head exam: Present: atraumatic, normocephalic - Eye Eye exam: Present: PERRL, conjuntiva pink, sclera anicteric Pupils: Present: PERRL - Neck Neck exam general surgery: Present: supple, trachea midline. Absent: lymphadenopathy - Respiratory Respiratory exam: Present: CTAB. Absent: accessory muscle use, rales, respiratory distress, rhonchi, wheezes - Cardiovascular Cardiovascular exam: Present: RRR, +S1, +S2. Absent: diastolic murmur, gallop, rubs, systolic murmur - GI/Abdominal GI/Abdominal exam: Present: normal bowel sounds, soft, no peritoneal signs. Absent: distended, tenderness - Extremities Exam Extremities exam: Present: warm, radial pulses palpable and symetrical. Absent : calf tenderness, cyanotic, pedal edema - Neurological Exam Neurological exam: Present: alert, CN II-XII intact, normal gait, oriented X3, no focal deficits, strengths equal and symetr throughout. Absent: pronater drift, facial droop, speech deficit - Skin Skin exam: Present: dry, intact, normal color, warm
--- NOTE | 2017-02-08 17:05 | Event Note ---
Date of Encounter: 02/08/17 Time of Encounter: 17:00 - Cardiology Event Note Per discussion with massimo Rivera to dc to home and f/u with [facility] as scheduled tomorrow.
--- NOTE | 2017-02-09 10:39 | Electrocardiograph Report ---
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
== END 2017-02-08 17:15 | disposition home or self-care (01) ==
LOC: 3BNU 00:44 → EMEROO 00:44 → 3BNU 04:23
PROVIDERS: ADMIT Internal Medicine; ATTEND Nurse Practitioner Family

== ENCOUNTER 2020-01-13 20:32 | Observation (INO) ==
[2020-01-13] MEDS ORDERED: *HR* Adenosine 6 MG/2 ML VIAL IVP ONE (21:32)
[2020-01-13 21:44] LABS: Basophils % 0.1 %; Eosinophils % 0.1 %; Hematocrit 38.3 % (35.3-44.9); Hemoglobin 12.2 g/dL (11.5-15.4); Immature Granulocytes % 0.3 % (0-4); Lymphocytes # 2.6 K/mcL (0.6-4.6); Lymphocytes % 26.2 %; Mean Corpuscular HGB Conc 31.9 g/dL (31.6-35.5); Mean Corpuscular Hemoglobin 29.2 pg (28.0-33.3); Mean Corpuscular Volume 91.6 fL (83.0-100.0); Mean Platelet Volume 11.9 fL (9.4-12.4); Monocytes # 0.6 K/mcL (0.0-1.3); Monocytes % 6.5 %; Neutrophils # 6.6 K/mcL (1.6-8.9); Platelet Count 244 K/mcL (140-400); Red Blood Count 4.18 M/mcL (3.82-4.97); Red Cell Distribution Width 16.1 % (11.5-14.5); Segmented Neutrophils % 66.8 %; White Blood Count 9.8 K/mcL (4.3-11.1)
[2020-01-13 22:04] LABS: Alanine Aminotransferase 17 Units/L (7-52); Albumin 4.3 g/dL (3.5-5.7); Albumin/Globulin Ratio 1.4 (1.1-2.2); Alkaline Phosphatase 52 Units/L (34-104); Aspartate Amino Transferase 15 Units/L (13-39); BUN/Creatinine Ratio 20 (6-26); Bilirubin,Total 0.5 mg/dL (0.3-1.0); Blood Urea Nitrogen 13 mg/dL (6-20); Calcium 9.5 mg/dL (8.6-10.3); Carbon Dioxide 25 mEq/L (23-29); Chloride 103 mEq/L (98-107); Glucose 136 mg/dL (70-105); Osmolality,Calculated 284 (280-300); Potassium 3.8 mEq/L (3.5-5.1); Sodium 136 mEq/L (136-145); Total Protein 7.3 g/dL (6.4-8.9); eGFR For African Americans > 60 (> 60); eGFR For Non-African Americans > 60 (> 60)
[2020-01-13] MEDS ORDERED: DilTIAZem 50 MG in 0.9 % Sodium Chloride 40 ML IVC SCH (22:15)
[2020-01-13 22:52] LABS: Troponin I < 0.03 ng/mL (< 0.04)
[2020-01-13 22:59] LABS: INR 2.8
[2020-01-14] MEDS ORDERED: *HR* Metoprolol 5 MG/5 ML VIAL IVP ONE (00:18)
[2020-01-14] MEDS: DilTIAZem 50 MG in 0.9 % Sodium Chloride 40 ML IVC SCH ×2 (00:23→02:30)
[2020-01-14] MEDS ORDERED: Naloxone 0.4 MG/ML INJ IVP PRN ×2 (01:23→14:44)
[2020-01-14 06:06] LABS: Eosinophils % 0.1 %; Hematocrit 38.2 % (35.3-44.9); Hemoglobin 12.3 g/dL (11.5-15.4); Immature Granulocytes % 0.3 % (0-4); Lymphocytes # 2.4 K/mcL (0.6-4.6); Lymphocytes % 32.7 %; Mean Corpuscular HGB Conc 32.2 g/dL (31.6-35.5); Mean Corpuscular Hemoglobin 29.5 pg (28.0-33.3); Mean Corpuscular Volume 91.6 fL (83.0-100.0); Mean Platelet Volume 11.7 fL (9.4-12.4); Monocytes # 0.5 K/mcL (0.0-1.3); Neutrophils # 4.3 K/mcL (1.6-8.9); Platelet Count 205 K/mcL (140-400); Red Blood Count 4.17 M/mcL (3.82-4.97); Red Cell Distribution Width 15.9 % (11.5-14.5); Segmented Neutrophils % 59.9 %; White Blood Count 7.2 K/mcL (4.3-11.1)
[2020-01-14 06:08] LABS: INR 2.5
[2020-01-14 06:23] LABS: BUN/Creatinine Ratio 20 (6-26); Blood Urea Nitrogen 11 mg/dL (6-20); Calcium 9.4 mg/dL (8.6-10.3); Carbon Dioxide 24 mEq/L (23-29); Chloride 105 mEq/L (98-107); Glucose 121 mg/dL (70-105); Osmolality,Calculated 283 (280-300); Potassium 3.8 mEq/L (3.5-5.1); Sodium 136 mEq/L (136-145); eGFR For African Americans > 60 (> 60); eGFR For Non-African Americans > 60 (> 60)
[2020-01-14] MEDS ORDERED: *HR* Heparin 5,000 UNIT/ML VIAL IVP PRN ×4 (07:52→14:44)
[2020-01-14] MEDS ORDERED: Heparin 25,000 UNIT/250 ML D5W 25,000 UNIT/250 ML IV.SOLN IVC SCH (08:00)
[2020-01-14 08:19] LABS: Hematocrit 39.5 % (35.3-44.9); Hemoglobin 12.3 g/dL (11.5-15.4); Mean Corpuscular HGB Conc 31.1 g/dL (31.6-35.5); Mean Corpuscular Hemoglobin 28.9 pg (28.0-33.3); Mean Corpuscular Volume 92.9 fL (83.0-100.0); Mean Platelet Volume 11.7 fL (9.4-12.4); Platelet Count 210 K/mcL (140-400); Red Blood Count 4.25 M/mcL (3.82-4.97); Red Cell Distribution Width 15.9 % (11.5-14.5); White Blood Count 6.2 K/mcL (4.3-11.1)
[2020-01-14 08:24] LABS: Heparin anti-factor XA UFH < 0.04 IU/mL (0.30-0.70); INR 2.3
[2020-01-14 08:54] LABS: Troponin I < 0.03 ng/mL (< 0.04)
[2020-01-14] MEDS: *HR* FentaNYL (PF) 100 MCG/2 ML VIAL IVP ONE ×3 (11:26→11:31)
[2020-01-14] MEDS: *HR* Midazolam HCl 5 MG/5 ML VIAL IVP ONE ×3 (11:26→11:31)
[2020-01-14] MEDS ORDERED: *HR* Amiodarone 200 MG TABLET PO SCH ×2 (12:00→21:00)
[2020-01-14 13:19] LABS: Thyroid Stimulating Hormone 1.191 mcIU/mL (0.340-5.600)
[2020-01-14] MEDS ORDERED: diazePAM 2 MG TABLET PO PRN (14:44)
[2020-01-14] MEDS ORDERED: Perflutren Lipid Microsphere 1.3 ML in 0.9 % Sodium Chloride 8.7 ML IVP ONE (16:26)
[2020-01-14] MEDS: Heparin 25,000 UNIT/250 ML D5W 25,000 UNIT/250 ML IV.SOLN IVC SCH (17:24)
[2020-01-14] MEDS ORDERED: *HR* Warfarin 2.5 MG TABLET PO ONE (18:00)
[2020-01-14] MEDS ORDERED: *HR* Warfarin 5 MG TABLET PO ONE ×2 (18:00)
[2020-01-14] MEDS ORDERED: Warfarin perPT PO PRN ×2 (18:00)
[2020-01-14] MEDS: *HR* Amiodarone 200 MG TABLET PO SCH (20:27)
[2020-01-14] MEDS ORDERED: Loratadine 10 MG TABLET PO SCH (21:00)
[2020-01-14] MEDS ORDERED: diazePAM 2 MG TABLET PO SCH (21:00)
[2020-01-15 01:42] LABS: Hematocrit 34.8 % (35.3-44.9); Hemoglobin 11.2 g/dL (11.5-15.4); Immature Granulocytes % 0.3 % (0-4); Lymphocytes # 2.5 K/mcL (0.6-4.6); Lymphocytes % 39.8 %; Mean Corpuscular HGB Conc 32.2 g/dL (31.6-35.5); Mean Corpuscular Hemoglobin 29.8 pg (28.0-33.3); Mean Corpuscular Volume 92.6 fL (83.0-100.0); Monocytes # 0.4 K/mcL (0.0-1.3); Monocytes % 6.4 %; Neutrophils # 3.4 K/mcL (1.6-8.9); Platelet Count 196 K/mcL (140-400); Red Blood Count 3.76 M/mcL (3.82-4.97); Red Cell Distribution Width 15.8 % (11.5-14.5); Segmented Neutrophils % 53.5 %; White Blood Count 6.3 K/mcL (4.3-11.1)
[2020-01-15 01:46] LABS: INR 1.9; Prothrombin Time 21.8 Seconds (9.4-12.1)
[2020-01-15 02:02] LABS: BUN/Creatinine Ratio 26 (6-26); Blood Urea Nitrogen 17 mg/dL (6-20); Calcium 9.3 mg/dL (8.6-10.3); Carbon Dioxide 24 mEq/L (23-29); Chloride 104 mEq/L (98-107); Glucose 118 mg/dL (70-105); Osmolality,Calculated 285 (280-300); Potassium 3.8 mEq/L (3.5-5.1); Sodium 136 mEq/L (136-145); eGFR For African Americans > 60 (> 60); eGFR For Non-African Americans > 60 (> 60)
[2020-01-15] MEDS: Heparin 25,000 UNIT/250 ML D5W 25,000 UNIT/250 ML IV.SOLN IVC SCH (02:29)
[2020-01-15] MEDS: *HR* Amiodarone 200 MG TABLET PO SCH (08:27)
[2020-01-15] MEDS ORDERED: Venlafaxine XR (24 HR) 75 MG CAP.ER.24H PO SCH ×2 (09:00)
[2020-01-15] MEDS ORDERED: Loratadine 10 MG TABLET PO SCH (09:00)
[2020-01-15 11:04] VITALS: BP 131/75
[2020-01-15 12:35] LABS: INR 2.6; Prothrombin Time 29.2 Seconds (9.4-12.1)
[2020-01-15] MEDS ORDERED: Venlafaxine XR (24 HR) 150 MG CAP.ER.24H PO SCH (13:45)
[2020-01-15] MEDS ORDERED: *HR* Warfarin 10 MG TABLET PO ONE (18:00)
== END 2020-01-15 14:13 | disposition home or self-care (01) ==
LOC: EMEROOARM 20:32 → ICNU 20:32 → SUATTDRO 01-14 01:23 → ICNU 01-14 02:09 → 2ANU 01-14 17:12
PROVIDERS: ADMIT Internal Medicine; ATTEND Family Medicine